=== PATIENT | male | born 1980 | race Caucasian/White ===

== ENCOUNTER 2019-02-27 19:13 | Observation (INO) ==
[2019-02-27] MEDS ORDERED: 0.9 % Sodium Chloride 1,000 ML IVC ONE ×2 (20:16→22:50)
[2019-02-27] MEDS ORDERED: *HR* LORazepam 2 MG/ML VIAL IVP ONE (20:16)
--- NOTE | 2019-02-27 20:20 | Emergency Department Note ---
Disposition Clinical Impression: Dehydration, Anxiety, Alcohol abuse, Diabetes, Marijuana abuse, Abnormal urinalysis, Fibromyalgia, Hypotension, On statin therapy Disposition: Admitted As Inpatient Condition: Fair Referrals: NONE,PCP [Primary Care Provider] - [facility] [Outside] Forms: ED Satisfaction Letter Time of Disposition: 00:24 General Adult HPI - General Chief complaint: ED Dizziness Stated complaint: Trouble standing/Lightheaded Time Seen by Provider: 02/27/19 20:07 Source: patient Limitations: no limitations - History of Present Illness HPI Narrative: 38-year-old male reports emergency department complaining that he has not eaten much food over the last few days and that he feels generally weak. When he sits up he feels woozy and lightheaded. He is known to be diabetic. The patient also describes significant anxiety and depression without suicidality or homicidality. He is known to drink alcohol on a regular basis. The patient does not describe convulsions or confusion, no tremulousness or concerns for DT. His last drink of alcohol was about noon. The patient denies chest pain or shortness of breath. No abdominal pain. No vomiting or diarrhea. No headache neck stiffness rash or fever. The patient describes chronic lower extremity diabetic neuropathy secondary to type 2 diabetes. There is no history of skin rash. The patient reports she has had "a bad week". He feels that he has not eaten and drank enough. There is no history of bleeding of any sort. No slurred speech or facial drooping or unilateral arm or leg weakness or numbness. Pain Scale: 4 - Related Data Home Medications Medication Instructions Recorded Confirmed Atorvastatin [Lipitor] 20 mg PO HS 02/27/19 02/27/19 Buspirone HCl [Buspar] 10 mg PO HS 02/27/19 02/27/19 Gabapentin [Neurontin] 600 mg PO HS 02/27/19 02/27/19 Nadolol 20 mg PO HS 02/27/19 02/27/19 Sertraline [Zoloft] 50 mg PO HS 02/27/19 02/27/19 Allergies Allergy/AdvReac Type Severity Reaction Status Date / Time No Known Allergies Allergy Verified 02/27/19 19:55 All systems ED: reviewed and negative except as stated. Past Medical History - Past Medical History Medical history: Reports: diabetes, fibromyalgia - Social History Smoking Status: Never smoker Alcohol use: Reports: heavy Drug use: Reports: none Physical Exam - General Limitations: no limitations General appearance: alert, anxious - Head Head exam: atraumatic, normocephalic, normal inspection - Eye Eye exam: Present: normal appearance, PERRL, EOMI. Absent: nystagmus - ENT ENT exam: normal exam, normal oropharynx, mucous membranes moist, TM's normal bilaterally, normal external ear exam - Neck Neck exam: Present: normal inspection, full ROM, trachea midline - Chest Chest inspection: Present: normal inspection, symmetric chest wall rise. Absent: tenderness - Respiratory Respiratory exam: Present: normal lung sounds bilaterally. Absent: respiratory distress, prolonged expiratory phase - Cardiovascular Cardiovascular exam: Present: regular rate, normal rhythm, normal heart sounds - Abdominal Exam Abdominal exam: Present: soft, Non-Tender, normal bowel sounds. Absent: tenderness, distention, guarding, rebound, rigidity - Extremities Exam Extremities exam: Present: normal inspection, full ROM. Absent: tenderness, normal capillary refill, pedal edema, joint swelling, calf tenderness - Expanded Lower Extremity Exam Neurovascular/Tendon exam: Present: normal capillary refill. Absent: pulse deficit, motor deficit, sensory deficit, tendon deficit, extremity cold to touch, pallor - Back Exam Back exam: Present: normal inspection, full ROM. Absent: tenderness, CVA tenderness (R), CVA tenderness (L), vertebral tenderness - Neurological Exam Neurological exam: Present: alert, oriented X3, CN II-XII intact. Absent: motor sensory deficit - Psychiatric Psychiatric exam: Present: normal affect, normal mood - Skin Skin exam: Present: warm, dry, intact, normal color Course Vital Signs Temperature 98.0 F 02/27/19 19:49 Pulse Rate 102 02/27/19 19:49 Respiratory Rate 20 02/27/19 19:49 Blood Pressure 134/94 02/27/19 19:49 O2 Sat by Pulse Oximetry 97 02/27/19 19:49 Temperature 98.0 F 02/27/19 19:49 Pulse Rate 100 02/28/19 00:35 Respiratory Rate 19 02/27/19 22:46 Blood Pressure 155/97 02/28/19 00:35 O2 Sat by Pulse Oximetry 93 02/27/19 22:46 Oxygen Delivery Oxygen Delivery Room Air Medical Decision Making - MDM Narrative Medical decision making narrative: The patient reports emergency department complaining he feels dizzy when he stands up. He states he has not taken much food or fluid over last few days. He is known to be a chronic alcohol user. He has not consumed alcohol since this morning. The patient does not describe symptoms suggestive of DT. He denies chest pain shortness breath abdominal pain or fall no seizure like activity no headache neck stiffness rash convulsion or confusion. He is known to be diabetic. The patient describes significant anxiety and depression. He has not been homicidal or suicidal. Laboratory studies were obtained and reviewed, there appears to be an element of dehydration. The patient was given Ativan in the emergency department for anxiety prevent withdrawal symptomatology. Two liters of normal saline were given and the patient remained orthostatic. Based on the patient's apparent dehydration with persistent orthostasis, and comorbidities including anxiety depression, alcohol abuse and diabetes, I thought it would be appropriate to admit the patient to the hospital. I discussed the case with the hospitalist on-call who has accepted the patient to their care pending results of ABG and beta hydroxybutyrate. Dr. Yadav is aware and will intervene if pending test results are abnormal. - Lab Data Lab results reviewed: Yes I reviewed the patient's lab results. Result diagrams: 02/27/19 20:30 02/27/19 20:30 Lab Results 02/27/19 02/27/19 02/27/19 Range/Units 20:15 20:30 20:30 WBC 9.7 (4.3-11.1) K/mcL RBC 6.34 H (4.19-5.50) M/mcL Hgb 18.1 H (12.9-16.9) g/dL Hct 51.2 H (37.5-50.1) % MCV 80.8 L (83.0-100.0) fL MCH 28.5 (28.0-33.3) pg MCHC 35.4 (31.6-35.5) g/dL RDW 11.9 (11.5-14.5) % Plt Count 245 (140-400) K/mcL MPV 10.9 (9.4-12.4) fL Immature Gran % 0.6 (0-4) % Seg Neutrophils % 61.1 % Lymphocytes % 27.5 % Monocytes % 9.4 % Eosinophils % 0.6 % Basophils % 0.8 % Neutrophils # 5.9 (1.6-8.9) K/mcL Lymphocytes # 2.7 (0.6-4.6) K/mcL Monocytes # 0.9 (0.0-1.3) K/mcL Eosinophils # 0.1 (0.0-0.6) K/mcL Basophils # 0.1 (0.0-0.2) K/mcL Sodium 132 L (136-145) mEq/L Potassium 3.6 (3.5-5.1) mEq/L Chloride 90 L (98-107) mEq/L Carbon Dioxide 26 (23-29) mEq/L BUN 6 (6-20) mg/dL Creatinine 0.69 L (0.70-1.30) mg/dL Est GFR ( Amer) > 60 (> 60) Est GFR (Non-Af Amer) > 60 (> 60) BUN/Creatinine Ratio 9 (6-26) Glucose 272 H (70-105) mg/dL POC Glucose 254 H (70-99) mg/dL Calculated Osmolality 281 (280-300) Calcium 9.3 (8.6-10.3) mg/dL Total Bilirubin 1.2 H (0.3-1.0) mg/dL AST 24 (13-39) Units/L ALT 23 (7-52) Units/L Alkaline Phosphatase 141 H (34-104) Units/L Creatine Kinase 31 (30-223) Units/L Troponin I < 0.03 (< 0.04) ng/mL Serum Total Protein 7.2 (6.4-8.9) g/dL Albumin 4.0 (3.5-5.7) g/dL Globulin 3.2 (2.4-3.5) g/dL Albumin/Globulin Ratio 1.3 (1.1-2.2) Urine Color (Yellow) Urine Clarity (Clear) Urine pH (5.0-8.0) pH Units Ur Specific [place] (1.010-1.025) Urine Protein (Neg-Trace) mg/dL Urine Glucose (UA) (Normal) mg/dL Urine Ketones (Negative) mg/dL Urine Blood (Negative) Urine Nitrite (Negative) Urine Bilirubin (Negative) Urine Urobilinogen (Normal) mg/dL Ur Leukocyte Esterase (Negative) Urine Microscopic RBC (0-3) per hpf Urine Microscopic WBC (0-3) per hpf Ur Squamous Epith Cells (None-Few) per lpf Urine Bacteria (None-Few) per hpf Hyaline Casts (None-Few) per lpf Ur Culture Indicated? (NO) Salicylates < 2.5 L (15.0-30.0) mg/dL Urine Opiates Screen (Idaoid=626) ng/mL Ur Buprenorphine Scrn (Cutoff=5) ng/mL Acetaminophen < 10 L (10-20) mcg/mL Ur Barbiturates Screen (Qskvqu=239) ng/mL Ur Phencyclidine Scrn (Cutoff=25) ng/mL Ur Amphetamines Screen (Fyeudm=3692) ng/mL U Benzodiazepines Scrn (Lgoaji=590) ng/mL Urine Cocaine Screen (Cutoff= 300) ng/mL U Marijuana (THC) Screen (Cutoff = 50) ng/mL Ur Drug Screen Interp Ethyl Alcohol < 10 (Less than 10) mg/dL 02/27/19 02/27/19 Range/Units 22:11 22:11 WBC (4.3-11.1) K/mcL RBC (4.19-5.50) M/mcL Hgb (12.9-16.9) g/dL Hct (37.5-50.1) % MCV (83.0-100.0) fL MCH (28.0-33.3) pg MCHC (31.6-35.5) g/dL RDW (11.5-14.5) % Plt Count (140-400) K/mcL MPV (9.4-12.4) fL Immature Gran % (0-4) % Seg Neutrophils % % Lymphocytes % % Monocytes % % Eosinophils % % Basophils % % Neutrophils # (1.6-8.9) K/mcL Lymphocytes # (0.6-4.6) K/mcL Monocytes # (0.0-1.3) K/mcL Eosinophils # (0.0-0.6) K/mcL Basophils # (0.0-0.2) K/mcL Sodium (136-145) mEq/L Potassium (3.5-5.1) mEq/L Chloride (98-107) mEq/L Carbon Dioxide (23-29) mEq/L BUN (6-20) mg/dL Creatinine (0.70-1.30) mg/dL Est GFR ( Amer) (> 60) Est GFR (Non-Af Amer) (> 60) BUN/Creatinine Ratio (6-26) Glucose (70-105) mg/dL POC Glucose (70-99) mg/dL Calculated Osmolality (280-300) Calcium (8.6-10.3) mg/dL Total Bilirubin (0.3-1.0) mg/dL AST (13-39) Units/L ALT (7-52) Units/L Alkaline Phosphatase (34-104) Units/L Creatine Kinase (30-223) Units/L Troponin I (< 0.04) ng/mL Serum Total Protein (6.4-8.9) g/dL Albumin (3.5-5.7) g/dL Globulin (2.4-3.5) g/dL Albumin/Globulin Ratio (1.1-2.2) Urine Color Yellow (Yellow) Urine Clarity Clear (Clear) Urine pH 6.5 (5.0-8.0) pH Units Ur Specific [place] 1.021 (1.010-1.025) Urine Protein Trace (Neg-Trace) mg/dL Urine Glucose (UA) >=1000 H (Normal) mg/dL Urine Ketones 15 H (Negative) mg/dL Urine Blood Negative (Negative) Urine Nitrite Negative (Negative) Urine Bilirubin Small H (Negative) Urine Urobilinogen 4.0 H (Normal) mg/dL Ur Leukocyte Esterase Small H (Negative) Urine Microscopic RBC 3-5 H (0-3) per hpf Urine Microscopic WBC 3-5 H (0-3) per hpf Ur Squamous Epith Cells Many H (None-Few) per lpf Urine Bacteria None Seen (None-Few) per hpf Hyaline Casts None Seen (None-Few) per lpf Ur Culture Indicated? YES A (NO) Salicylates (15.0-30.0) mg/dL Urine Opiates Screen Negative (Ybcacw=253) ng/mL Ur Buprenorphine Scrn Negative (Cutoff=5) ng/mL Acetaminophen (10-20) mcg/mL Ur Barbiturates Screen Negative (Ldlspc=045) ng/mL Ur Phencyclidine Scrn Negative (Cutoff=25) ng/mL Ur Amphetamines Screen Negative (Izebee=0218) ng/mL U Benzodiazepines Scrn Negative (Lelqky=572) ng/mL Urine Cocaine Screen Negative (Cutoff= 300) ng/mL U Marijuana (THC) Screen Positive H (Cutoff = 50) ng/mL Ur Drug Screen Interp See Below Ethyl Alcohol (Less than 10) mg/dL - Radiology Data Radiology results reviewed: Yes I reviewed the patient's radiology results.
[2019-02-27 20:44] LABS: Basophils # 0.1 K/mcL (0.0-0.2); Basophils % 0.8 %; Eosinophils # 0.1 K/mcL (0.0-0.6); Eosinophils % 0.6 %; Hematocrit 51.2 % (37.5-50.1); Hemoglobin 18.1 g/dL (12.9-16.9); Immature Granulocytes % 0.6 % (0-4); Lymphocytes # 2.7 K/mcL (0.6-4.6); Lymphocytes % 27.5 %; Mean Corpuscular HGB Conc 35.4 g/dL (31.6-35.5); Mean Corpuscular Hemoglobin 28.5 pg (28.0-33.3); Mean Corpuscular Volume 80.8 fL (83.0-100.0); Mean Platelet Volume 10.9 fL (9.4-12.4); Monocytes # 0.9 K/mcL (0.0-1.3); Monocytes % 9.4 %; Neutrophils # 5.9 K/mcL (1.6-8.9); Platelet Count 245 K/mcL (140-400); Red Blood Count 6.34 M/mcL (4.19-5.50); Red Cell Distribution Width 11.9 % (11.5-14.5); Segmented Neutrophils % 61.1 %; White Blood Count 9.7 K/mcL (4.3-11.1)
[2019-02-27 21:13] LABS: Acetaminophen < 10 mcg/mL (10-20); Alanine Aminotransferase 23 Units/L (7-52); Albumin/Globulin Ratio 1.3 (1.1-2.2); Alkaline Phosphatase 141 Units/L (34-104); Aspartate Amino Transferase 24 Units/L (13-39); BUN/Creatinine Ratio 9 (6-26); Bilirubin,Total 1.2 mg/dL (0.3-1.0); Blood Urea Nitrogen 6 mg/dL (6-20); Calcium 9.3 mg/dL (8.6-10.3); Carbon Dioxide 26 mEq/L (23-29); Chloride 90 mEq/L (98-107); Ethanol < 10 mg/dL (Less than 10); Globulin 3.2 g/dL (2.4-3.5); Glucose 272 mg/dL (70-105); Osmolality,Calculated 281 (280-300); Potassium 3.6 mEq/L (3.5-5.1); Salicylate < 2.5 mg/dL (15.0-30.0); Sodium 132 mEq/L (136-145); Total Protein 7.2 g/dL (6.4-8.9); Troponin I < 0.03 ng/mL (< 0.04); eGFR For African Americans > 60 (> 60); eGFR For Non-African Americans > 60 (> 60)
[2019-02-27 22:18] LABS: Bilirubin,Urine Small (Negative); Blood,Urine Negative (Negative); Clarity,Urine Clear (Clear); Color,Urine Yellow (Yellow); Glucose,Urine (UA) >=1000 mg/dL (Normal); Ketones,Urine 15 mg/dL (Negative); Leukocyte Esterase,Urine Small (Negative); Nitrite,Urine Negative (Negative); PH,Urine 6.5 pH Units (5.0-8.0); Protein,Urine Trace mg/dL (Neg-Trace); Specific Gravity,Urine 1.021 (1.010-1.025)
[2019-02-27 22:20] LABS: Bacteria,Urine None Seen per hpf (None-Few); Hyaline Casts,Urine None Seen per lpf (None-Few); Squamous Epithelial Cell,Urine Many per lpf (None-Few)
[2019-02-27 22:33] LABS: Amphetamine Screen,Urine Negative ng/mL (Cutoff=1000); Barbiturate Screen,Urine Negative ng/mL (Cutoff=200); Benzodiazepines Screen,Urine Negative ng/mL (Cutoff=200); Cannabinoid Screen,Urine Positive ng/mL (Cutoff = 50); Cocaine Screen,Urine Negative ng/mL (Cutoff= 300); Opiate Screen,Urine Negative ng/mL (Cutoff=300); Phencyclidine Screen,Urine Negative ng/mL (Cutoff=25)
[2019-02-28 00:01] LABS: Creatine Kinase 31 Units/L (30-223)
[2019-02-28] MEDS ORDERED: *HR* LORazepam 1 MG TABLET PO ONE ×2 (00:23→00:24)
[2019-02-28 04:09] LABS: VBG HCO3 28 mEq/L (21-27); VBG PCO2 40 mmHg (41-51); VBG PH 7.45 pH Units (7.32-7.42); VBG PO2 68 mmHg (25-50)
--- NOTE | 2019-02-28 04:59 | Emergency Department Note ---
START Narrative - START START: Dr. Viera notified of pending lab results and accepted admission of the patient. He requested a repeat Accu-Chek and repeat basic metabolic panel. Dr. Viera accepted admission of the patient. Repeat Accu-Chek was 185.
[2019-02-28] MEDS ORDERED: 0.9 % Sodium Chloride 1,000 ML ONE (05:09)
[2019-02-28 05:31] LABS: BUN/Creatinine Ratio 9 (6-26); Blood Urea Nitrogen 6 mg/dL (6-20); Calcium 8.8 mg/dL (8.6-10.3); Carbon Dioxide 25 mEq/L (23-29); Chloride 96 mEq/L (98-107); Glucose 172 mg/dL (70-105); Osmolality,Calculated 278 (280-300); Potassium 3.5 mEq/L (3.5-5.1); Sodium 133 mEq/L (136-145); eGFR For African Americans > 60 (> 60); eGFR For Non-African Americans > 60 (> 60)
[2019-02-28] MEDS ORDERED: *HR* LORazepam 2 MG/ML VIAL IVP PRN ×2 (06:36)
[2019-02-28] MEDS: *HR* LORazepam 2 MG/ML VIAL IVP PRN ×2 (07:11→20:28)
[2019-02-28] MEDS: 0.9 % Sodium Chloride 1,000 ML IVC SCH ×2 (07:12→18:59)
[2019-02-28] MEDS ORDERED: Dextrose Gel 15 GM/37.5 ML TUBE PO PRN ×2 (07:43)
[2019-02-28] MEDS ORDERED: *HR* Dextrose 50 % in Water (Syg) 50 ML SYRINGE IVP PRN (07:43)
[2019-02-28] MEDS ORDERED: D5% in Water 1,000 ML IVC PRN (07:43)
[2019-02-28] MEDS ORDERED: Acetaminophen 325 MG TABLET PO PRN (07:44)
[2019-02-28] MEDS ORDERED: Ondansetron 4 MG/2 ML VIAL IVP PRN (07:44)
[2019-02-28] MEDS ORDERED: Naloxone 0.4 MG/ML INJ IVP PRN (07:44)
[2019-02-28] MEDS ORDERED: Ibuprofen 400 MG TABLET PO PRN (07:44)
[2019-02-28 08:09] LABS: Hematocrit 45.2 % (37.5-50.1); Mean Corpuscular HGB Conc 34.3 g/dL (31.6-35.5); Mean Corpuscular Hemoglobin 28.3 pg (28.0-33.3); Mean Corpuscular Volume 82.5 fL (83.0-100.0); Mean Platelet Volume 10.9 fL (9.4-12.4); Platelet Count 168 K/mcL (140-400); Red Blood Count 5.48 M/mcL (4.19-5.50); Red Cell Distribution Width 11.9 % (11.5-14.5); White Blood Count 8.6 K/mcL (4.3-11.1)
[2019-02-28 08:16] LABS: Hemoglobin 15.5 g/dL (12.9-16.9)
[2019-02-28 08:17] LABS: INR 1.2; Prothrombin Time 13.4 Seconds (9.4-12.1)
--- NOTE | 2019-02-28 08:19 | Internal Med History&Physical ---
Date of Encounter: 02/28/19 Time of Encounter: 07:52 Internal Medicine - H&P: HPI Chief complaint: Dizziness Admitted From: Emergency Dept History of present illness: Sheldon Gorman is a 38 M w hx EtOH use disorder c/b neuropathy, DM2, dep/anx, obesity, who p/w dizziness upon standing. Says this has been happening frequently in the last 2 days, but that he's been having lightheadedness when standing intermittently for several weeks. Did fall in his bathtub 3 weeks ago (denies head trauma), and prior to that had to sit down in his hallway en route to bathroom. Says that for the last ~6 months, he's noticed significant weight loss unintentionally of about 40-50 lbs, going from ~260 to ~210. States multiple started commenting about his weight loss to the point where he's felt embarassed and actually stopped leaving his house because of it, and started drinking more. Unsure why he's losing weight but does report difficulty swallowing solid food, saying he attempts to swallow but feels like he often regurgitates it. Does drink EtOH daily which he says helps with his painful peripheral neuropathy, which he acknowledges is probably from his drinking. Last hospitalized at [place] he says 2 months ago for similar reasons. Denies H A/F/C/N/V/D. In the ED, pt vitals show T 98, HR 102, RR 20, SBP 130-150s which dropped to 110 on standing. Labs notable for Hb 18, Na 132, Cl 90, BG 272, Tbili 1.2, ketones 0.4, Lactate 2.4, VBG pH 7.45. Given NS 3L and admitted. PMH: as above PSH: none SH: daily EtOH, nonsmoker FH: no hx cirrhosis, no hx esophageal cancer or other pathology Allergies: none Past Med Surg Social Fam HX - Past Medical History Medical history: diabetes, fibromyalgia, other Additional medical history: neuropathy, Alcohol Abuse Psychiatric history: anxiety, depression - Social History Smoking Status: Never smoker Alcohol use: heavy Drug use: none Internal Medicine - H&P: Meds Atorvastatin [Lipitor] 20 mg PO HS 02/27/19 [History] Buspirone HCl [Buspar] 10 mg PO HS 02/27/19 [History] Gabapentin [Neurontin] 600 mg PO HS 02/27/19 [History] Nadolol 20 mg PO HS 02/27/19 [History] Sertraline [Zoloft] 50 mg PO HS 02/27/19 [History] Allergy/AdvReac Type Severity Reaction Status Date / Time No Known Allergies Allergy Verified 02/27/19 19:55 All Systems PM: A 10-system review of systems was performed and is negative for pertinent findings except as documented above in the HPI. - Constitutional Vitals: Temp Pulse Resp BP Pulse Ox 98.0 F 100 18 132/96 93 02/27/19 19:49 02/28/19 00:35 02/28/19 05:46 02/28/19 05:46 02/27/19 22:46 Exam: General: NAD, initially disoriented upon awakening but subsequently AAOx3, good eye contact, disheveled/unkempt w long mendez, diffuse tattoos including face Head: Atraumatic, normocephalic. Face symmetric Eyes: EOMI, sclerae anicteric ENT: Mucous membranes moist. Normal oral mucosa and poor dentition. Trachea midline. No cervical lymphadenopathy Thoracic: No visible chest wall deformities. Normal breath sounds b/l, no wheezing or crackles Cardio: Normal S1 and S2, regular rhythm, tachycardic, no murmurs Abdomen: Soft, nontender, nondistended. Bowel sounds present. No rebound. Unable to detect any hepatosplenomegaly Extremities: Warm, well perfused. DP pulses 2+ b/l. No clubbing, cyanosis. No edema Skin: Intact. No rashes, bruises, or ulcers. Tattoos widespread Neuro: Awake, fully oriented. Moderate memory, decent concentration and attention. Speech fluent. CN II-XII grossly intact. Strength 5/5 in b/l UE and LE. No tremor. Internal Med - H&P Results - Labs CBC & Chem 7: 02/28/19 07:56 02/28/19 07:56 Labs: Short CBC 02/27/19 Range/Units 20:30 WBC 9.7 (4.3-11.1) K/mcL Hgb 18.1 H (12.9-16.9) g/dL Hct 51.2 H (37.5-50.1) % Plt Count 245 (140-400) K/mcL Neutrophils # 5.9 (1.6-8.9) K/mcL BMP 02/27/19 02/28/19 20:30 03:47 Sodium 132 L 133 L Potassium 3.6 3.5 Chloride 90 L 96 L Carbon Dioxide 26 25 BUN 6 6 Creatinine 0.69 L 0.66 L Glucose 272 H 172 H Calcium 9.3 8.8 Cardiac Enzymes 02/27/19 Range/Units 20:30 Troponin I < 0.03 (< 0.04) ng/mL Liver Function 02/27/19 Range/Units 20:30 Total Bilirubin 1.2 H (0.3-1.0) mg/dL AST 24 (13-39) Units/L ALT 23 (7-52) Units/L Alkaline Phosphatase 141 H (34-104) Units/L Albumin 4.0 (3.5-5.7) g/dL Urine 02/27/19 Range/Units 22:11 Urine Color Yellow (Yellow) Urine Clarity Clear (Clear) Urine pH 6.5 (5.0-8.0) pH Units Ur Specific [place] 1.021 (1.010-1.025) Urine Protein Trace (Neg-Trace) mg/dL Urine Glucose (UA) >=1000 H (Normal) mg/dL - ABG Interpretation ABG results: 02/28/19 04:03 VBG pH 7.45 H VBG pCO2 40 L VBG pO2 68 H VBG HCO3 28 H - Impressions ITS Impressions Chest X-Ray 02/27/19 20:16 IMPRESSION: No acute cardiopulmonary process D/ / Song Rivas / Song Rivas Interpreting Provider: Song Rivas - Summary of Assessment and Plan Summary of Assessment and Plan: Sheldon Gorman is a 38 M w hx EtOH use disorder, DM2, dep/anx, obesity, who p/w dizziness upon standing in context of EtOH use and poor PO, found to have hyperglycemia, hyponatremia, urine ketones, elevated lactic acid, and postural drop in BP, concerning for dehydration causing orthostatic hypotension and st arvation ketosis. Orthostatic hypotension: likely 2/2 dehydration - recheck ortho VS now that pt s/p NS 3L boluses Elevated lactic acid: VBG pH is wnl - recheck now since having rec'd fluids Dehydration: c/b hypovolemic hyponatremia and hypochloremia, 2/2 EtOH use and hyperglycemia, given NS 3L in ED with improvement - recheck bmp and add mg, phos Starvation ketosis: 2/2 poor PO intake 2/2 EtOH use but also reports ~50 lb wt loss in 2019 w difficulty swallowing solids which could indicate underlying structural pathology - speech consult for swallow eval - EGD EtOH use disorder: high risk for wdwl, does have mild elevated Tbili - CIWA protocol & precautions - check MELD labs - RUQ DM2: hyperglycemic on presentation - check A1c - SSI Microcytic erythrocytosis: nonsmoker, no T use - recheck Hb/Hct - peripheral smear Obesity: BMI 30 PPx: lovenox Tele: no Activity: ambulate w assist FEN: ADA, no MIVF Lines: PIV Consults: Code: Full Dispo: obs for high risk pt w complicated dehdyration, anticipate 1-2 days, will be homegoing
[2019-02-28 08:30] LABS: Alanine Aminotransferase 16 Units/L (7-52); Albumin 3.3 g/dL (3.5-5.7); Albumin/Globulin Ratio 1.3 (1.1-2.2); Alkaline Phosphatase 111 Units/L (34-104); Aspartate Amino Transferase 16 Units/L (13-39); BUN/Creatinine Ratio 9 (6-26); Bilirubin,Direct 0.3 mg/dL (0.0-0.2); Bilirubin,Indirect 1.3 mg/dL (0.0-1.2); Bilirubin,Total 1.6 mg/dL (0.3-1.0); Blood Urea Nitrogen 6 mg/dL (6-20); Calcium 8.5 mg/dL (8.6-10.3); Carbon Dioxide 29 mEq/L (23-29); Chloride 96 mEq/L (98-107); Globulin 2.6 g/dL (2.4-3.5); Glucose 205 mg/dL (70-105); Magnesium 1.6 mg/dL (1.6-2.6); Osmolality,Calculated 284 (280-300); Phosphorous 4.2 mg/dL (2.7-4.5); Potassium 3.4 mEq/L (3.5-5.1); Sodium 135 mEq/L (136-145); Total Protein 5.9 g/dL (6.4-8.9); eGFR For African Americans > 60 (> 60); eGFR For Non-African Americans > 60 (> 60)
[2019-02-28 08:57] LABS: Lactate Dehydrogenase 128 Units/L (140-271)
[2019-02-28 09:00] LABS: Basophils # 0.1 K/mcL (0.0-0.2); Basophils % 0.7 %; Eosinophils # 0.1 K/mcL (0.0-0.6); Eosinophils % 0.6 %; Immature Granulocytes % 0.6 % (0-4); Lymphocytes # 2.8 K/mcL (0.6-4.6); Lymphocytes % 31.4 %; Monocytes # 0.9 K/mcL (0.0-1.3); Monocytes % 10.6 %; Neutrophils # 4.9 K/mcL (1.6-8.9); Segmented Neutrophils % 56.1 %
[2019-02-28] MEDS: Insulin LISPRO 300 UNITS/3 ML VIAL SQ SCH ×4 (09:57→20:46)
[2019-02-28 11:02] LABS: Estimated Average Glucose 209 mg/dl
--- NOTE | 2019-02-28 12:13 | Gastroenterology Consult Note ---
<JonesUgo portillo Diego - Last Filed: 02/28/19 12:11> Date of Encounter: 02/28/19 Time of Encounter: 11:45 - Assessment and plan (1) Dysphagia Status: Acute Assessment and plan: Patient with difficulty swallowing solids and liquids. EGD with possible dilation to r/o structural causes such as stricture, tumor, etc vs esophageal motility disorder. Keep patient NPO at midnight. Qualifiers: Dysphagia type: unspecified Qualified Code(s): R13.10 - Dysphagia, unspecified (2) Unintentional weight loss Status: Acute Assessment and plan: Patient reports weight loss of 30 lbs over the past 6 months. Likely secondary to alcohol abuse. Plan for EGD tomorrow. Keep NPO at midnight. (3) Alcohol abuse Status: Acute Assessment and plan: Liver ultrasound unremarkable. TB 1.6, indirect bili 1.3, AST 16, ALT 16, alkaline phosphatase 111. Encouraged patient to abstain from all forms of alcohol. - Time Spent With Patient Total time spent is greater than 50% in coordination of care (as documented) at patient's floor/unit and/or counseling patient: GI History of Present Illness - Data of Consult Patient: new to practice Consult date: 02/28/19 Requesting Physician: Mirza Gonzalez - Consult Narrative Reason for consult: Wt loss, dysphagia History of present illness: Mr. Gorman is a 38 year old male with PMHx of DM, fibromyalgia, alcohol abuse who presented with complaints of not eating much food over the last few days, dizziness with standing, and weakness. He states he has lost approximately 30 pounds in the past 6 months. He also complains of dysphagia with solids and liquids that has been ongoing for the past two months. He has history of alcohol abuse and states he was drinking at leat a bottle of vodka daily. He was then dry for approximately 2 months. He states he restarted drinking one bottle of vodka daily last week. He denies fever, chills, chest pain, shortness of breath, abdominal pain, nausea, vomiting, diarrhea, melena, or hematochezia. Procedures: None NSAIDs: None Anticoagulation: None Past Med Surg Social Fam HX - Past Medical History Medical history: diabetes, fibromyalgia, other Additional medical history: neuropathy, Alcohol Abuse Psychiatric history: anxiety, depression - Social History Smoking Status: Never smoker Alcohol use: heavy Drug use: none - Gastrointestinal Gastrointestinal: Present: as per HPI - Constitutional Constitutional: as per HPI - EENT Eyes: as per HPI Ears: Present: as per HPI Nose, mouth and throat: Present: as per HPI - Cardiovascular Cardiovascular ROS: Present: as per HPI - Respiratory Respiratory IM: Present: as per HPI - Genitourinary Genitourinary: Absent: change in color, Urinary frequency - Neurological ROS Neurological GI: Present: as per HPI - Hematologic/Lymphatic Hematologic/Lymphatic pediatric: Present: as per HPI - Musculoskeletal Musculoskeletal ROS GI: Present: as per HPI - Integumentary Integumentary GI: Present: as per HPI - Psychiatric ROS Psychiatric GI: Present: as per HPI - Endocrine Endocrine IM: Present: as per HPI - Constitutional Vitals: Temp Pulse Resp BP Pulse Ox 97.7 F 97 16 158/88 96 02/28/19 11:48 02/28/19 11:48 02/28/19 11:48 02/28/19 11:48 02/28/19 11:48 General appearance: Present: cooperative, A&O X 3, no acute distress, answers questions appropriately - Head Head exam: Present: atraumatic, normocephalic - Eye Eye exam: Present: normal appearance, sclera anicteric - ENT ENT exam: Present: mucous membranes moist - Neck Neck exam general surgery: Present: normal inspection, trachea midline - Respiratory Respiratory exam: Present: CTAB. Absent: rales, rhonchi - Cardiovascular Cardiovascular exam: Present: RRR, +S1, +S2 - GI/Abdominal GI/Abdominal exam: Present: soft, no peritoneal signs. Absent: distended, firm, guarding, tenderness - Rectal Rectal exam: Present: deferred - Extremities Exam Extremities exam: Present: warm - Neurological Exam Neurological exam: Present: no focal deficits - Psychiatric Psychiatric exam: Present: normal affect, normal mood - Skin Skin exam: Present: dry, intact, normal color, warm Additional comments: Multiple tattoos Results - Labs CBC & Chem 7: 02/28/19 07:56 02/28/19 07:56 Labs: Last Result 02/28/19 02/28/19 03:47 07:56 Calcium 8.8 8.5 L Entire Visit 02/28/19 02/28/19 02/28/19 07:56 07:56 07:56 Hgb 15.5 D Hct 45.2 PT 13.4 H Total Bilirubin 1.6 H AST 16 ALT 16 - ABG ABG results: PT/INR, D-dimer PT 13.4 Seconds (9.4-12.1) H 02/28/19 07:56 - Impressions Impressions Chest X-Ray 02/27/19 20:16 IMPRESSION: No acute cardiopulmonary process D/ / Song Rivas / Song Rivas Interpreting Provider: Song Rivas Liver Ultrasound 02/28/19 10:00 IMPRESSION: Unremarkable right upper quadrant ultrasound. D/ / Edson Boyer MD / Edson Boyer MD Interpreting Provider: Edson Boyer MD Consult Discharge Plan - Plan Instructions: Lisinopril (By mouth), Omeprazole (By mouth), Sertraline (By mouth), Vancomycin (By mouth), Anxiety (DC) Additional Instructions: Change positions slowly Stay hydrated Monitor blood pressure and keep a log Follow-up with residency clinic Follow-up with mental health AA meetings Referrals: [facility] [Outside] (Please call to schedule hospital follow up.) [facility] [Outside] (Please call to schedule follow up appointment) Prescriptions: Vancomycin Oral Soln [Firvanq] 125 mg PO QID 10 Days #40 udc Omeprazole [PriLOSEC] 20 mg PO DAILY #30 cap Lisinopril [Zestril] 5 mg PO DAILY 30 Days #30 tablet Sertraline [Zoloft] 200 mg PO DAILY 30 Days #60 tablet <Brennan Rivera - Last Filed: 03/06/19 05:49> Date of Encounter: 02/28/19 - Time Spent With Patient Total time spent is greater than 50% in coordination of care (as documented) at patient's floor/unit and/or counseling patient: GI History of Present Illness - Data of Consult Requesting Physician: Mirza Gonzalez - Consult Narrative History of present illness: Mr. Gorman is a 38 year old male - Constitutional Vitals: Temp Pulse Resp BP Pulse Ox 98.1 F 90 16 141/99 98 03/03/19 12:11 03/03/19 12:11 03/03/19 12:11 03/03/19 12:11 03/03/19 12:11 Results - Labs CBC & Chem 7: 03/03/19 09:08 03/03/19 09:08 - ABG ABG results: PT/INR, D-dimer PT 11.5 Seconds (9.4-12.1) 03/02/19 05:28 - Attending Attestation Mr. Gorman is a 38 year old male with PMHx of DM, fibromyalgia, alcohol abuse who presented with complaints of not eating much food over the last few days, dizziness with standing, and weakness. He also reports a 30 pound weight loss. I examined this patient and my medical decision-making was reviewed with the Resident Physician. I agree with the documented findings, disposition and treatment plan as described except to the extent set forth below.
[2019-02-28] MEDS: Thiamine (B-1) 100 MG, Folic Acid 1 MG, MVI, adult with vitamin K 10 ML in 0.9 % Sodi... IVPB SCH (19:00)
[2019-02-28] MEDS: Gabapentin 300 MG CAPSULE PO SCH (20:28)
[2019-03-01] MEDS: *HR* LORazepam 2 MG/ML VIAL IVP PRN ×2 (05:18→20:57)
[2019-03-01] MEDS: 0.9 % Sodium Chloride 1,000 ML IVC SCH ×3 (05:31→14:07)
[2019-03-01] MEDS ORDERED: *HR* Enoxaparin 40 MG/0.4 ML SYRINGE SQ SCH (06:00)
[2019-03-01] MEDS: Insulin LISPRO 300 UNITS/3 ML VIAL SQ SCH ×4 (08:30→20:37)
--- NOTE | 2019-03-01 11:01 | Internal Med Progress Note ---
Hospitalist Progress Note - Encounter Date of Encounter: 03/01/19 Time of Encounter: 11:01 - Subjective Interval History: Patient was seen and examined at bedside patient appears to be distraught and at times almost tearful states that he has been under a lot of stress lately and that he has been arguing with his and that is what prompted him to start drinking. Also expresses difficulty in swallowing he denies any suicidal ideations but he repeatedly states "I do not know what to do "patient will undergo EGD today we will also consult psychiatry patient verbalizes understanding - Exam Vitals: Temp Pulse Resp BP Pulse Ox 98.5 F 95 16 151/113 97 03/01/19 07:24 03/01/19 07:24 03/01/19 07:24 03/01/19 07:24 03/01/19 07:24 Exam: General: NAD, initially disoriented upon awakening but subsequently AAOx3, good eye contact, disheveled/unkempt w long mendez, diffuse tattoos including face Head: Atraumatic, normocephalic. Face symmetric Eyes: EOMI, sclerae anicteric ENT: Mucous membranes moist. Normal oral mucosa and poor dentition. Trachea midline. No cervical lymphadenopathy Thoracic: No visible chest wall deformities. Normal breath sounds b/l, no wheezing or crackles Cardio: Normal S1 and S2, regular rhythm, tachycardic, no murmurs Abdomen: Soft, nontender, nondistended. Bowel sounds present. No rebound. Unable to detect any hepatosplenomegaly Extremities: Warm, well perfused. DP pulses 2+ b/l. No clubbing, cyanosis. No edema Skin: Intact. No rashes, bruises, or ulcers. Tattoos widespread Neuro: Awake, fully oriented. Moderate memory, decent concentration and attention. Speech fluent. CN II-XII grossly intact. Strength 5/5 in b/l UE and LE. No tremor. - Assessment and Plan (1) Dehydration Current Visit: Yes Status: Acute Assessment and Plan: Patient presented with dizziness upon standing which is been occurring past couple of days as well as significant weight loss-he has been drinking alcohol daily and as had difficulty swallowing fluids and has had poor oral intake. We will continue the IV fluids for now Monitor electrolytes (2) Alcohol abuse Current Visit: Yes Status: Acute Assessment and Plan: Patient admits to alcohol abuse states that he has been sober for the past 2 months previously he drank for 2 years and that he went into rehabilitation. For the past week he has been drinking approximately 6 beers a day he states that he has been under a lot of stress both financially and personally. We will continue with CIWA for now does not appear to be withdrawing (3) Diabetes Current Visit: Yes Status: Acute Assessment and Plan: Patient states he was recently diagnosed with diabetes currently on insulin A1c was 8.2- does have neuropathy Continue with Accu-Cheks before meals at bedtime with sliding scale insulin (4) Unintentional weight loss Current Visit: Yes Status: Acute Assessment and Plan: Patient states that he has had unintentional weight loss of approximately 30 pounds over the past 6 months-is most likely could be related to alcohol abuse as well as anxiety. Patient states he is having difficulty swallowing solids and liquids. GI was consulted and patient underwent EGD today (5) Anxiety Current Visit: Yes Status: Acute Assessment and Plan: Patient states that he has been under a lot of stress financially and personally states he has trouble sleeping at night and worries a lot. He states he has been taking his medications however this has not been helping him and days been self Medicating with alcohol. He denies any suicidal ideations however his states that he has threatened to harm himself at home and she has become fearful and has hidden guns from him. Patient repeatedly states "I do not know what I am going to do" he also states that he is overwhelmed at times he becomes tearful. We will consult psychiatry-recommending Vistaril at this time Continue with patient's BuSpar as well as Zoloft. (6) Postural dizziness Current Visit: Yes Status: Acute Assessment and Plan: Patient has been experiencing feelings of lightheadedness and weakness patient states he has not been eating much past few days and has been drinking a lot of alcohol. He has been having difficulty swallowing. Suspect this may be dehydration in nature continue with IV fluids obtain orthostatic vital signs patient is on fall precautions (7) Dysphagia Current Visit: Yes Status: Acute Assessment and Plan: Patient has been experiencing difficulty swallowing and has had a 30 pound weight loss in the past 6 months. 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
[2019-03-01 11:04] LABS: BUN/Creatinine Ratio 6 (6-26); Blood Urea Nitrogen 4 mg/dL (6-20); Calcium 8.8 mg/dL (8.6-10.3); Carbon Dioxide 27 mEq/L (23-29); Chloride 100 mEq/L (98-107); Glucose 184 mg/dL (70-105); Osmolality,Calculated 284 (280-300); Potassium 3.6 mEq/L (3.5-5.1); Sodium 136 mEq/L (136-145); eGFR For African Americans > 60 (> 60); eGFR For Non-African Americans > 60 (> 60)
[2019-03-01] MEDS ORDERED: *HR* Propofol 200 MG/20 ML VIAL IVP ONE (13:05)
[2019-03-01] MEDS ORDERED: Lidocaine -MPF 2% 2 ML VIAL ONE (13:05)
[2019-03-01] MEDS ORDERED: *HR* Midazolam HCl 2 MG/2 ML VIAL ONE (13:46)
--- NOTE | 2019-03-01 13:51 | Anesthesia Evaluation PreOp ---
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: Other (diabetic neuropathy, anxiety, depression, fibromyalgia) Other Medical History: Diabetes Type II, Other (dysphagia, 6-12 beers a night) Alcohol Use: heavy Drug use: none Medications and Allergies Gabapentin [Neurontin] 600 mg PO HS 02/27/19 [History] Nadolol 20 mg PO HS 02/27/19 [History] Sertraline [Zoloft] 50 mg PO HS 02/27/19 [History] Acamprosate Calcium 333 mg PO TID 03/01/19 [History] Atorvastatin Calcium [Lipitor] 20 mg PO DAILY 03/01/19 [History] DULoxetine [Cymbalta] 40 mg PO DAILY 03/01/19 [History] Insulin DETEMIR [Levemir Flextouch] 15 units SQ BID 03/01/19 [History] Melatonin 3 mg PO HS 03/01/19 [History] Allergy/AdvReac Type Severity Reaction Status Date / Time No Known Allergies Allergy Verified 03/01/19 08:35 - Meds/Allergy Pre-op Review Medications Reviewed: Yes Allergies Reviewed: Yes Beta Blockers on Current Med List: Yes (nadolol ) Anesthesia Results - Labs 02/28/19 07:56 03/01/19 10:35 - Imaging EKG: report reviewed Anesthesia Exam Vital Signs/O2 Sat/Glucose, Most Recent Temp Pulse Resp BP Pulse Ox 98.7 F 96 20 168/117 97 03/01/19 11:38 03/01/19 13:19 03/01/19 13:19 03/01/19 13:19 03/01/19 13:19 Blood Glucose* 167 Weight: 95 kg NPO (# of Hours): > 8 hr - HEENT Pupil (Motor): Pupils equal Mallampati: II Teeth: Poor dentition (multiple loose) Oral Opening: Greater than 3 - FLOAT REMOVER LOC: Oriented - Cardiac Rhythm: Regular Murmur: None - Pulmonary Breath Sounds: bilateral Clear Respiratory Effort: Symmetrical Anesthesia Assess/Plan ASA Score: 2 Level of consciousness: Cooperative, Oriented Anesthetic Plan: MAC Monitoring Plan: Standard Monitors Recovery Plan: PACU
--- NOTE | 2019-03-01 14:22 | Anesthesia Evaluation Post Op ---
Date of Encounter: 03/01/19 Time of Encounter: 14:22 - Vital Signs Vital Signs: Vital Signs/O2 Sat/Glucose, Most Recent Temp Pulse Resp BP Pulse Ox 98.7 F 96 18 157/107 98 03/01/19 11:38 03/01/19 13:50 03/01/19 13:50 03/01/19 13:50 03/01/19 13:50 Blood Glucose* 167 - Lungs Lungs: Clear Ascult./Percussion - Airway Airway: Non-obstructed - Cardiovascular Regular Rate - Mental Status Mental Status: Alert & Oriented, Answers Appropriately - Pain Pain Scale: 0 - Nausea Vomiting Nausea Vomiting: Not Present - Hydration Hydration: NPO - Discharge PostOp Status: Transfer Patient to floor
[2019-03-01] MEDS: Thiamine (B-1) 100 MG, Folic Acid 1 MG, MVI, adult with vitamin K 10 ML in 0.9 % Sodi... IVPB SCH (18:14)
[2019-03-01] MEDS: Gabapentin 300 MG CAPSULE PO SCH (20:35)
[2019-03-01] MEDS: hydrOXYzine pamoate 25 MG CAPSULE PO PRN (20:35)
[2019-03-02] MEDS ORDERED: diazePAM 10 MG/2 ML SYRINGE IVP STA (02:02)
--- NOTE | 2019-03-02 04:36 | Electrocardiograph Report ---
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
[2019-03-02] MEDS ORDERED: Haloperidol Lactate 5 MG/ML VIAL IVP ONE (04:40)
[2019-03-02] MEDS ORDERED: *HR* Promethazine 25 MG/ML VIAL IVP ONE (04:41)
[2019-03-02 05:59] LABS: Basophils % 0.4 %; Eosinophils # 0.1 K/mcL (0.0-0.6); Eosinophils % 1.1 %; Hematocrit 48.4 % (37.5-50.1); Immature Granulocytes % 0.6 % (0-4); Lymphocytes # 2.5 K/mcL (0.6-4.6); Lymphocytes % 34.8 %; Mean Corpuscular HGB Conc 33.1 g/dL (31.6-35.5); Mean Corpuscular Hemoglobin 28.6 pg (28.0-33.3); Mean Corpuscular Volume 86.6 fL (83.0-100.0); Mean Platelet Volume 11.2 fL (9.4-12.4); Monocytes # 0.7 K/mcL (0.0-1.3); Monocytes % 10.3 %; Neutrophils # 3.8 K/mcL (1.6-8.9); Platelet Count 125 K/mcL (140-400); Red Blood Count 5.59 M/mcL (4.19-5.50); Red Cell Distribution Width 11.9 % (11.5-14.5); Segmented Neutrophils % 52.8 %; White Blood Count 7.1 K/mcL (4.3-11.1)
[2019-03-02 06:09] LABS: Prothrombin Time 11.5 Seconds (9.4-12.1)
[2019-03-02] MEDS ORDERED: Lidocaine -MPF 2% 2 ML VIAL ONE (06:19)
[2019-03-02] MEDS ORDERED: *HR* Propofol 200 MG/20 ML VIAL IVP ONE (06:19)
[2019-03-02 06:59] LABS: Adenovirus F 40/41 PCR Not detected (Not detect); Astrovirus PCR Not detected (Not detect); Campylobacter by PCR Not detected (Not detect); Cryptosporidium by PCR Not detected (Not detect); Cyclospora cayetanensis PCR Not detected (Not detect); E. coli O157 by PCR Not detected (Not detect); Entamoeba histolytica PCR Not detected (Not detect); Enteroaggregative E.coli(EAEC) Not detected (Not detect); Enteropathogenic E.coli(EPEC) Not detected (Not detect); Enterotoxigenic E.coli (ETEC) Not detected (Not detect); Giardia lamblia PCR Not detected (Not detect); Norovirus GI/GII PCR Not detected (Not detect); Plesiomonas shigelloides PCR Not detected (Not detect); Rotavirus A PCR Not detected (Not detect); Salmonella PCR Not detected (Not detect); Sapovirus PCR Not detected (Not detect); Shig/EnteroinvasiveE coli EIEC Not detected (Not detect); Shigalike tox-prod E coli STEC Not detected (Not detect); Vibrio PCR Not detected (Not detect); Vibrio cholerae PCR Not detected (Not detect); Yersinia enterocolitica PCR Not detected (Not detect)
[2019-03-02 07:01] LABS: C.difficile Toxin A/B Gene PCR DETECTED (Not detect)
[2019-03-02] MEDS: Insulin LISPRO 300 UNITS/3 ML VIAL SQ SCH ×4 (08:06→21:04)
[2019-03-02] MEDS ORDERED: 0.9 % Sodium Chloride 1,000 ML IVC SCH ×2 (08:30→10:00)
--- NOTE | 2019-03-02 08:46 | Anesthesia Evaluation PreOp ---
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: Other (alcoholism (currently appears to be having symptoms of withdrawal); anxiety/depression, diabetic neuropathy) Other Medical History: Diabetes Type II (uses insulin), Other (currently with C dif) Anesthesia History: No Prior Anesthetic Complications Alcohol Use: heavy Drug use: none Medications and Allergies Gabapentin [Neurontin] 600 mg PO HS 02/27/19 [History] Nadolol 20 mg PO HS 02/27/19 [History] Sertraline [Zoloft] 50 mg PO HS 02/27/19 [History] Acamprosate Calcium 333 mg PO TID 03/01/19 [History] Atorvastatin Calcium [Lipitor] 20 mg PO DAILY 03/01/19 [History] DULoxetine [Cymbalta] 40 mg PO DAILY 03/01/19 [History] Insulin DETEMIR [Levemir Flextouch] 15 units SQ BID 03/01/19 [History] Melatonin 3 mg PO HS 03/01/19 [History] Allergy/AdvReac Type Severity Reaction Status Date / Time No Known Allergies Allergy Verified 03/01/19 08:35 - Meds/Allergy Pre-op Review Medications Reviewed: Yes Allergies Reviewed: Yes Beta Blockers on Current Med List: Yes (nadolol) If Beta Blockers taken, Date/Time (Last Dose taken): 03-01-19 nadolol at 20:41 Anesthesia Results - Labs 03/02/19 05:28 03/01/19 10:35 - Imaging EKG: report reviewed, image reviewed (SINUS TACHYCARDIA WITH SHORT [place] INTERVAL NONSPECIFIC T-WAVE ABNORMALITY ABNORMAL RHYTHM ECG) Anesthesia Exam Last Vital Signs Temp 98.6 F 03/02/19 08:23 Pulse 87 03/02/19 08:23 Resp 16 03/02/19 08:23 BP 157/108 03/02/19 08:23 Pulse Ox 94 03/02/19 08:23 Weight: 97 kg NPO (# of Hours): > 8 hrs - HEENT Pupil (Motor): Pupils equal, EOMI Mallampati: II Teeth: Poor dentition (multiple loose teeth) Oral Opening: Greater than 3 - DIMENSIONAL INSPECTOR LOC: Oriented - Cardiac Rhythm: Regular Murmur: None - Pulmonary Breath Sounds: bilateral Clear Respiratory Effort: Symmetrical Anesthesia Assess/Plan ASA Score: 2 Level of consciousness: Cooperative Anesthetic Plan: MAC Monitoring Plan: Standard Monitors Recovery Plan: PACU
[2019-03-02] MEDS ORDERED: *HR* Midazolam HCl 5 MG/5 ML VIAL IVP ONE ×2 (08:50)
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
[2019-03-02] MEDS: 0.9 % Sodium Chloride 1,000 ML IVC SCH (12:09)
[2019-03-02 12:43] LABS: BUN/Creatinine Ratio 5 (6-26); Blood Urea Nitrogen 3 mg/dL (6-20); Calcium 8.9 mg/dL (8.6-10.3); Carbon Dioxide 26 mEq/L (23-29); Chloride 101 mEq/L (98-107); Glucose 226 mg/dL (70-105); Osmolality,Calculated 290 (280-300); Potassium 3.5 mEq/L (3.5-5.1); Sodium 138 mEq/L (136-145); eGFR For African Americans > 60 (> 60); eGFR For Non-African Americans > 60 (> 60)
[2019-03-02] MEDS: Vancomycin Oral Soln 125 MG/2.5 ML UDC PO SCH ×3 (14:28→21:07)
[2019-03-02] MEDS: Thiamine (B-1) 100 MG, Folic Acid 1 MG, MVI, adult with vitamin K 10 ML in 0.9 % Sodi... IVPB SCH (17:47)
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
[2019-03-02] MEDS: Gabapentin 300 MG CAPSULE PO SCH (21:09)
[2019-03-02] MEDS: hydrOXYzine pamoate 25 MG CAPSULE PO PRN (22:32)
[2019-03-03] MEDS: hydrOXYzine pamoate 25 MG CAPSULE PO PRN ×2 (04:22→11:23)
[2019-03-03] MEDS: Insulin LISPRO 300 UNITS/3 ML VIAL SQ SCH ×2 (08:35→12:24)
[2019-03-03] MEDS: Vancomycin Oral Soln 125 MG/2.5 ML UDC PO SCH ×2 (08:41→12:31)
--- NOTE | 2019-03-03 09:14 | Psychiatry Progress Note ---
Date of Encounter: 03/03/19 Time of Encounter: 08:00 Subjective Interval history: Patient has been doing very well for the past 24 hours. He has been cooperative with no outbursts. He has consistently denied suicidal ideations for the past 2 days. While there have been concerns raised from his these were about incidents that occurred several weeks ago. He is currently very future oriented to get back to his job and make sure that he is able to drive his daughter back and forth to school. He said he would never harm himself because he would never hurt her. He said he has no violence history and no legal history. Sleep and appetite are improved. Review of Systems Psychiatric: Reports: anxiety. Denies: depression, suicidal ideation, homicidal ideation, auditory hallucinations, visual hallucinations Results - Vital Signs Vital Signs: Temp Pulse Resp BP Pulse Ox 98.7 F 99 16 143/98 96 03/03/19 08:22 03/03/19 08:22 03/03/19 08:22 03/03/19 08:22 03/03/19 08:22 - Labs Labs: Laboratory Results - last 24 hr 03/02/19 03/02/19 03/02/19 07:03 11:18 12:06 Sodium 138 Potassium 3.5 Chloride 101 Carbon Dioxide 26 BUN 3 L Creatinine 0.59 L Est GFR ( Amer) > 60 Est GFR (Non-Af Amer) > 60 BUN/Creatinine Ratio 5 L Glucose 226 H POC Glucose 173 H 184 H Calculated Osmolality 290 Calcium 8.9 03/02/19 03/02/19 17:46 18:54 Sodium Potassium Chloride Carbon Dioxide BUN Creatinine Est GFR ( Amer) Est GFR (Non-Af Amer) BUN/Creatinine Ratio Glucose POC Glucose 188 H 167 H Calculated Osmolality Calcium - Impressions ITS Impressions Chest X-Ray 02/27/19 20:16 IMPRESSION: No acute cardiopulmonary process D/ / Song Rivas / Song Rivas Interpreting Provider: Song Rivas Liver Ultrasound 02/28/19 10:00 IMPRESSION: Unremarkable right upper quadrant ultrasound. D/ / Edson Boyer MD / Edson Boyer MD Interpreting Provider: Edson Boyer MD Echocardiogram 03/01/19 10:28 Impressions: LVEF 60-65%. Normal LV chamber size, wall thickness and function. Normal right ventricular structure and function. Mild tricuspid regurgitation. No pulmonary hypertension. Left Ventricular Wall Motion: Rest Echo Findings All wall segments showed normal motion. Findings: Study Quality * Technically adequate exam. ECG Findings * Normal sinus rhythm. Left Ventricle * LVEF 60-65%. * Normal LV chamber size, wall thickness and systolic function. * Normal left ventricular diastolic function. Right Ventricle * Normal right ventricular structure and function. Left Atrium * Normal left atrial size. Right Atrium * Normal right atrial size. Interatrial Septum * Interatrial septum not well evaluated. Aortic Valve * Trileaflet aortic valve with normal function. * No aortic stenosis. * No aortic regurgitation. Mitral Valve * Normal mitral valve structure. * No mitral stenosis. * Trace mitral regurgitation. Tricuspid Valve * Normal tricuspid valve structure. * No tricuspid stenosis. * Mild tricuspid regurgitation. * Estimated RVSP is 24 mmHg. * Estimated RA pressure is 3 mmHg. * No pulmonary hypertension. Pulmonic Valve * Pulmonic valve is not well visualized. * No pulmonic stenosis. * No pulmonic regurgitation. Aorta * Normally sized aortic root. Pericardium * The pericardium appears normal. IVC * The IVC is not dilated. * > 50% respiratory change Assessment and Plan (1) Major depressive disorder Current visit: Yes Status: Acute Additional Plan: Patient has unspecified anxiety, major depressive disorder, and alcohol use disorder. He had been on a pink slip due to the concerns raised by his spouse of prior suicidal comments. However he has done very well and the last day and throughout his hospital stay he has not endorsed any suicidal thoughts and has demonstrated future orientation. As such he no longer meets pink slip criteria. He is agreeable to raising Zoloft 200 mg by mouth every morning for both his anxiety and depression and I do recommend this. I would also recommend that primary team informed his to remove all weapons permanently although she has indicated that they are currently hidden and he does not know where they are. Encourage AA meetings and follow up with mental health. Risks, benefits, side effects, alternatives discussed w/pt: Yes Patient agreeable to treatment: Yes Qualifiers: Major depression recurrence: recurrent Active/Remission status: currently active Major depression episode severity: severe Psychotic features: without psychotic features Qualified Code(s): F33.2 - Major depressive disorder, recurrent severe without psychotic features Consult Discharge Plan - Plan Referrals: NONE,PCP [Primary Care Provider] - Psychiatry Exam - Constitutional Vitals: Temp Pulse Resp BP Pulse Ox 98.7 F 99 16 143/98 96 03/03/19 08:22 03/03/19 08:22 03/03/19 08:22 03/03/19 08:22 03/03/19 08:22 General appearance: age & developmentally appropriate, well-groomed, well- nourished - Musculoskeletal Gait: normal Station: relaxed Strength & Tone: normal for patient - Psychiatric Patient Orientation: Yes Person, Yes Time, Yes Place, Yes Circumstance Level of alertness: Alert Behavior: calm, cooperative Psychomotor activity: Normal Eye Contact: Maintains Eye Contact Mood Description: Euthymic/stable Patient description of mood: Better Affect description: congruent with mood, full range Speech Volume: Normal Speech pattern: normal rate, normal rhythm, normal tone, fluent, spontaneous Language & Vocabulary: consistent with education Thought Process: Linear, Goal Oriented Thought Content: No Suicidal ideation, No Homicidal ideation, No Overt delusions Perceptual Disturbances: No Auditory hallucinations, No Visual hallucinations Attention Span Ability: Capable of Focused Attention Memory Description: Grossly Intact Patient Reliability: Reliable Historian Fund of knowledge: Yes abstraction ability, Yes aware of current events Intelligence Estimate: Average Judgment: Good Insight: Full
[2019-03-03 09:23] LABS: Basophils % 0.5 %; Eosinophils # 0.1 K/mcL (0.0-0.6); Eosinophils % 1.5 %; Hemoglobin 16.6 g/dL (12.9-16.9); Immature Granulocytes % 0.8 % (0-4); Lymphocytes # 2.6 K/mcL (0.6-4.6); Lymphocytes % 33.3 %; Mean Corpuscular HGB Conc 33.9 g/dL (31.6-35.5); Mean Corpuscular Hemoglobin 28.6 pg (28.0-33.3); Mean Corpuscular Volume 84.5 fL (83.0-100.0); Mean Platelet Volume 11.7 fL (9.4-12.4); Monocytes # 0.7 K/mcL (0.0-1.3); Neutrophils # 4.4 K/mcL (1.6-8.9); Platelet Count 165 K/mcL (140-400); Red Cell Distribution Width 12.1 % (11.5-14.5); Segmented Neutrophils % 54.9 %; White Blood Count 7.9 K/mcL (4.3-11.1)
[2019-03-03 09:39] LABS: BUN/Creatinine Ratio 3 (6-26); Blood Urea Nitrogen 2 mg/dL (6-20); Calcium 9.2 mg/dL (8.6-10.3); Carbon Dioxide 26 mEq/L (23-29); Chloride 100 mEq/L (98-107); Glucose 282 mg/dL (70-105); Osmolality,Calculated 290 (280-300); Potassium 3.4 mEq/L (3.5-5.1); Sodium 137 mEq/L (136-145); eGFR For African Americans > 60 (> 60); eGFR For Non-African Americans > 60 (> 60)
--- NOTE | 2019-03-03 09:49 | Discharge Summary ---
- NOTES TO OUTPATIENT PROVIDER Notes to Outpatient Provider: monitor Electrolytes -treated for c-diff dehydration. follow up with GI. 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 (4) Unintentional weight loss Priority: Secondary Status: Acute (5) Anxiety Priority: Secondary Status: Acute (6) Postural dizziness Priority: Secondary Status: Acute (7) Dysphagia Priority: Secondary Status: Acute Qualifiers: Dysphagia type: unspecified Qualified Code(s): R13.10 - Dysphagia, unspecified (8) Major depressive disorder Priority: Secondary Status: Acute Qualifiers: Major depression recurrence: recurrent Active/Remission status: currently active Major depression episode severity: severe Psychotic features: without psychotic features Qualified Code(s): F33.2 - Major depressive disorder, recurrent severe without psychotic features Hospital course: Mr. Gorman is a 38 year old male with history of alcohol use neuropathy diabetes depression/anxiety obesity originally presented to [facility] ED with complaints of dizziness upon standing which he states been happening frequently the past 2 days. He did have a fall approximately 3 weeks ago however denied any head trauma. He is also experiencing unintentional weight loss of past 6 months and has had difficulty swallowing solid food. He does have a history of alcohol abuse he did go through rehabilitation approximately 2 months ago and has been sober since then however in the past week he had family stressors and he began drinking approximately 6 beers a day. Lab work was obtained which did show some hyponatremia and urine tox was positive for marijuana. Patient was given IV fluids he had several loose stools which we sent for GI sample was positive for C. difficile. Patient was started on vancomycin. He was evaluated by GI and patient underwent EGD with dilatation of esophagus as well as gastritis-during the admission patient did express extreme anxiety and appeared distraught concerning his personal and financial life. His was concerned and express the patient has threatened to kill himself, she was so concerned that she did firearms from him. I titrated was consulted originally pink slipped the patient with concerns of suicidal ideations however adamantly denied any suicidal ideations and does display future orientation. He will longer meets ian baigped criteria-hoda chi recommending raising Zoloft 200 mg every morning for his anxiety depression he will need to follow-up with mental health as an outpatient. Patient is encouraged to follow-up with AA meetings-during admission patient did have some elevation in his blood pressure he was initiated on low-dose lisinopril-his lightheadedness did improve after receiving IV fluids he is ambulating without any difficulty. Advised patient follow-up with PCP GI and mental health. He will be given a prescription for Zoloft 200 mg daily Prilosec 20 mg daily lisinopril 10 mg daily and vancomycin 125 mg 4 times a day for 10 days. Currently patient is hemodynamically stable at this time and he is ready for discharge - Time Spent with Patient Total time spent providing and/or coordinating discharge services: - Discharge Medications Prescriptions: New Buspirone HCl [Buspar] 10 mg PO HS tablet Vancomycin Oral Soln [Firvanq] 125 mg PO QID 10 Days #40 udc Sertraline [Zoloft] 200 mg PO DAILY 30 Days #60 tablet Omeprazole [PriLOSEC] 20 mg PO DAILY #30 cap Lisinopril [Zestril] 5 mg PO DAILY 30 Days #30 tablet Continued Gabapentin [Neurontin] 600 mg PO HS Nadolol 20 mg PO HS Atorvastatin Calcium [Lipitor] 20 mg PO DAILY Discontinued Sertraline [Zoloft] 50 mg PO HS No Action Acamprosate Calcium 333 mg PO TID DULoxetine [Cymbalta] 40 mg PO DAILY Insulin DETEMIR [Levemir Flextouch] 15 units SQ BID Melatonin 3 mg PO HS Home Medications: Gabapentin [Neurontin] 600 mg PO HS 02/27/19 [History] Nadolol 20 mg PO HS 02/27/19 [History] Acamprosate Calcium 333 mg PO TID 03/01/19 [History] Atorvastatin Calcium [Lipitor] 20 mg PO DAILY 03/01/19 [History] DULoxetine [Cymbalta] 40 mg PO DAILY 03/01/19 [History] Insulin DETEMIR [Levemir Flextouch] 15 units SQ BID 03/01/19 [History] Melatonin 3 mg PO HS 03/01/19 [History] Buspirone HCl [Buspar] 10 mg PO HS tablet 03/03/19 [Rx] Lisinopril [Zestril] 5 mg PO DAILY 30 Days #30 tablet 03/03/19 [Rx] Omeprazole [PriLOSEC] 20 mg PO DAILY #30 cap 03/03/19 [Rx] Sertraline [Zoloft] 200 mg PO DAILY 30 Days #60 tablet 03/03/19 [Rx] Vancomycin Oral Soln [Firvanq] 125 mg PO QID 10 Days #40 udc 03/03/19 [Rx] Allergies/Adverse Reactions: Allergy/AdvReac Type Severity Reaction Status Date / Time No Known Allergies Allergy Verified 03/01/19 08:35 Date of admission: 02/28/19 04:42 Primary care physician: PCP NONE Consults: 02/28/19 10:37 Consult to Gastroenterology [CONS] Routine Consulting Provider: Gastroenterology Monserrat Reason for Consult: here for orthostatic hypotension and starvation ketosis likely all from EtOH intake, but with weight loss and regurgitation there could be dysphagia as contributor and thus patient warrants EGD Call Completed: Yes 03/01/19 10:57 Consult to Psychiatry [CONS] Routine Consulting Provider: Psychiatry Monserrat Reason consult: Other Other reason and/or additional details: Anxiety, depression- self medicating with ETOH Time Notified: 10:58 Call Completed: Yes Discharging clinician: Maral Lyman Anticipated date of discharge: 03/03/19 - Constitutional Vitals: Temp Pulse Resp BP Pulse Ox 98.7 F 99 16 143/98 96 03/03/19 08:22 03/03/19 08:22 03/03/19 08:22 03/03/19 08:22 03/03/19 08:22 Exam: General: NAD, initially disoriented upon awakening but subsequently AAOx3, good eye contact, disheveled/unkempt w long mendez, diffuse tattoos including face Head: Atraumatic, normocephalic. Face symmetric Eyes: EOMI, sclerae anicteric ENT: Mucous membranes moist. Normal oral mucosa and poor dentition. Trachea midline. No cervical lymphadenopathy Thoracic: No visible chest wall deformities. Normal breath sounds b/l, no wheezing or crackles Cardio: Normal S1 and S2, regular rhythm, tachycardic, no murmurs Abdomen: Soft, nontender, nondistended. Bowel sounds present. No rebound. Unable to detect any hepatosplenomegaly Extremities: Warm, well perfused. DP pulses 2+ b/l. No clubbing, cyanosis. No edema Skin: Intact. No rashes, bruises, or ulcers. Tattoos widespread Neuro: Awake, fully oriented. Moderate memory, decent concentration and attention. Speech fluent. CN II-XII grossly intact. Strength 5/5 in b/l UE and LE. No tremor. - Patient Status Disposition: Home, Self-Care Condition: Fair Functional capacity at discharge: independent ambulation Overall status at discharge: patient is back to baseline - Discharge Instructions Instructions: Vancomycin (By mouth), Anxiety (DC) Follow Up With: [facility] [Outside] (Please call to schedule hospital follow up.) [facility] [Outside] (Please call to schedule follow up appointment) Additional Instructions: Change positions slowly Stay hydrated Monitor blood pressure and keep a log Follow-up with residency clinic Follow-up with mental health AA meetings - Diet and Activity Activity: increase activity as tolerated Diet: advance to your usual diet
[2019-03-03 10:30] LABS: Alanine Aminotransferase 16 Units/L (7-52); Albumin 3.7 g/dL (3.5-5.7); Albumin/Globulin Ratio 1.4 (1.1-2.2); Alkaline Phosphatase 99 Units/L (34-104); Aspartate Amino Transferase 19 Units/L (13-39); Bilirubin,Direct 0.2 mg/dL (0.0-0.2); Bilirubin,Indirect 0.6 mg/dL (0.0-1.2); Bilirubin,Total 0.8 mg/dL (0.3-1.0); Globulin 2.6 g/dL (2.4-3.5); Total Protein 6.3 g/dL (6.4-8.9)
[2019-03-03] MEDS ORDERED: 0.9 % Sodium Chloride 1,000 ML IVC ONE (10:41)
[2019-03-03 12:15] VITALS: BP 124/90
== END 2019-03-03 15:20 | disposition home or self-care (01) ==
LOC: EMEROOARM 19:13 → 3BNU 19:13 → SUATTDRO 02-28 04:42 → 3BNU 02-28 05:55
PROVIDERS: ADMIT Internal Medicine; ATTEND Internal Medicine
PROC: ENDOORB (2019-03-02 08:00)

== ENCOUNTER 2019-09-28 17:31 | Inpatient (IN) ==
[2019-09-28 17:55] LABS: Basophils % 0.2 %; Hematocrit 21.8 % (37.5-50.1); Hemoglobin 7.8 g/dL (12.9-16.9); Immature Granulocytes % 1.5 % (0-4); Lymphocytes # 1.4 K/mcL (0.6-4.6); Lymphocytes % 11.9 %; Mean Corpuscular HGB Conc 35.8 g/dL (31.6-35.5); Mean Corpuscular Hemoglobin 30.8 pg (28.0-33.3); Mean Corpuscular Volume 86.2 fL (83.0-100.0); Mean Platelet Volume 8.9 fL (9.4-12.4); Monocytes % 8.2 %; Neutrophils # 9.1 K/mcL (1.6-8.9); Platelet Count 235 K/mcL (140-400); Red Blood Count 2.53 M/mcL (4.19-5.50); Red Cell Distribution Width 15.3 % (11.5-14.5); Segmented Neutrophils % 78.2 %; White Blood Count 11.6 K/mcL (4.3-11.1)
[2019-09-28 18:15] LABS: Acetaminophen < 10 mcg/mL (10-20); BUN/Creatinine Ratio 14 (6-26); Blood Urea Nitrogen 20 mg/dL (6-20); Calcium 9.5 mg/dL (8.6-10.3); Carbon Dioxide 28 mEq/L (23-29); Chloride 74 mEq/L (98-107); Ethanol < 10 mg/dL (Less than 10); Glucose 65 mg/dL (70-105); Osmolality,Calculated 257 (280-300); Potassium 3.1 mEq/L (3.5-5.1); Salicylate < 2.5 mg/dL (15.0-30.0); Sodium 123 mEq/L (136-145); eGFR For African Americans > 60 (> 60); eGFR For Non-African Americans 56 (> 60)
[2019-09-28] MEDS ORDERED: Potassium Chloride Elixir 20 MEQ/15 ML UDC PO ONE (19:00)
[2019-09-28] MEDS ORDERED: 0.9 % Sodium Chloride 1,000 ML IV ONE (19:37)
[2019-09-28 20:13] LABS: Basophils % 0.2 %; Hematocrit 19.9 % (37.5-50.1); Hemoglobin 7.1 g/dL (12.9-16.9); Lymphocytes # 1.6 K/mcL (0.6-4.6); Lymphocytes % 14.5 %; Mean Corpuscular HGB Conc 35.7 g/dL (31.6-35.5); Mean Corpuscular Hemoglobin 31.1 pg (28.0-33.3); Mean Corpuscular Volume 87.3 fL (83.0-100.0); Mean Platelet Volume 8.9 fL (9.4-12.4); Monocytes # 0.9 K/mcL (0.0-1.3); Monocytes % 8.4 %; Neutrophils # 8.3 K/mcL (1.6-8.9); Platelet Count 215 K/mcL (140-400); Red Blood Count 2.28 M/mcL (4.19-5.50); Red Cell Distribution Width 15.3 % (11.5-14.5); Segmented Neutrophils % 75.9 %; White Blood Count 10.9 K/mcL (4.3-11.1)
[2019-09-28 20:17] LABS: INR 1.2; Prothrombin Time 13.7 Seconds (9.4-12.1)
[2019-09-28] MEDS ORDERED: Isovue-370 500 ML BOTTLE IVP ONE (20:30)
[2019-09-28 20:34] LABS: BUN/Creatinine Ratio 16 (6-26); Blood Urea Nitrogen 21 mg/dL (6-20); Calcium 9.1 mg/dL (8.6-10.3); Carbon Dioxide 29 mEq/L (23-29); Chloride 75 mEq/L (98-107); Glucose 65 mg/dL (70-105); Osmolality,Calculated 257 (280-300); Potassium 3.3 mEq/L (3.5-5.1); Sodium 123 mEq/L (136-145); eGFR For African Americans > 60 (> 60); eGFR For Non-African Americans 60 (> 60)
[2019-09-28 21:06] LABS: Bilirubin,Urine Small (Negative); Blood,Urine Negative (Negative); Color,Urine Dark Yellow (Yellow); Glucose,Urine (UA) Normal (Normal); Ketones,Urine Negative (Negative); Leukocyte Esterase,Urine Trace (Negative); Nitrite,Urine Negative (Negative); Protein,Urine Negative (Neg-Trace); Specific Gravity,Urine 1.013 (1.010-1.025)
[2019-09-28 21:08] LABS: Bacteria,Urine None Seen per hpf (None-Few); Hyaline Casts,Urine None Seen per lpf (None-Few); RBC,Urine 0-3 per hpf (0-3); Squamous Epithelial Cell,Urine Moderate per lpf (None-Few); WBC,Urine 0-3 per hpf (0-3)
[2019-09-28 21:11] LABS: Clarity,Urine Slightly Hazy (Clear)
[2019-09-28 21:16] LABS: Amphetamine Screen,Urine Negative ng/mL (Cutoff=1000); Barbiturate Screen,Urine Negative ng/mL (Cutoff=200); Benzodiazepines Screen,Urine Negative ng/mL (Cutoff=200); Cannabinoid Screen,Urine Negative ng/mL (Cutoff = 50); Cocaine Screen,Urine Negative ng/mL (Cutoff= 300); Opiate Screen,Urine Negative ng/mL (Cutoff=300); Phencyclidine Screen,Urine Negative ng/mL (Cutoff=25)
[2019-09-28 22:20] LABS: Alanine Aminotransferase 9 Units/L (7-52); Albumin 3.1 g/dL (3.5-5.7); Albumin/Globulin Ratio 1.1 (1.1-2.2); Alkaline Phosphatase 148 Units/L (34-104); Aspartate Amino Transferase 28 Units/L (13-39); Bilirubin,Direct 0.4 mg/dL (0.0-0.2); Bilirubin,Indirect 0.7 mg/dL (0.0-1.0); Bilirubin,Total 1.1 mg/dL (0.3-1.0); Globulin 2.8 g/dL (2.4-3.5); Total Protein 5.9 g/dL (6.4-8.9)
[2019-09-28] MEDS ORDERED: Naloxone 0.4 MG/ML INJ IVP PRN (22:52)
[2019-09-28] MEDS ORDERED: 0.9 % Sodium Chloride 1,000 ML IVC SCH (23:00)
[2019-09-28] MEDS ORDERED: Dextrose Gel 15 GM/37.5 ML TUBE PO PRN ×2 (23:01)
[2019-09-28] MEDS ORDERED: *HR* Dextrose 50 % in Water (Syg) 50 ML SYRINGE IVP PRN (23:01)
[2019-09-28] MEDS ORDERED: D5% in Water 1,000 ML IVC PRN (23:01)
[2019-09-28] MEDS ORDERED: *HR* LORazepam 2 MG/ML VIAL IVP PRN ×3 (23:02)
[2019-09-28 23:22] LABS: % Iron Saturation 87 % (20-55); Iron 217 mcg/dL (65-175); Lactate Dehydrogenase 185 Units/L (140-271); Transferrin 178 mg/dL (203-362)
[2019-09-28 23:42] LABS: Ferritin > 1500 ng/mL (20-250)
[2019-09-28 23:48] LABS: Folate 5.2 ng/mL (3.0-16.0)
[2019-09-29 00:37] LABS: BUN/Creatinine Ratio 17 (6-26); Blood Urea Nitrogen 20 mg/dL (6-20); Calcium 8.4 mg/dL (8.6-10.3); Carbon Dioxide 26 mEq/L (23-29); Chloride 80 mEq/L (98-107); Glucose 64 mg/dL (70-105); Osmolality,Calculated 259 (280-300); Potassium 3.4 mEq/L (3.5-5.1); Sodium 124 mEq/L (136-145); eGFR For African Americans > 60 (> 60); eGFR For Non-African Americans > 60 (> 60)
[2019-09-29] MEDS: polyethylene glycoL 3350 17 GM POWD.PACK PO SCH ×2 (00:37→08:26)
[2019-09-29] MEDS ORDERED: Potassium Chloride Elixir 20 MEQ/15 ML UDC GTUBE ONE (00:59)
[2019-09-29] MEDS: Insulin LISPRO 300 UNITS/3 ML VIAL SQ SCH ×5 (01:01→19:48)
[2019-09-29] MEDS: Gabapentin 300 MG CAPSULE PO SCH ×5 (01:33→19:53)
[2019-09-29 01:50] LABS: Basophils % 0.2 %; Eosinophils % 0.1 %; Hematocrit 18.3 % (37.5-50.1); Hemoglobin 6.4 g/dL (12.9-16.9); Lymphocytes # 1.6 K/mcL (0.6-4.6); Mean Corpuscular Hemoglobin 31.1 pg (28.0-33.3); Mean Corpuscular Volume 88.8 fL (83.0-100.0); Mean Platelet Volume 9.3 fL (9.4-12.4); Monocytes # 0.8 K/mcL (0.0-1.3); Neutrophils # 6.5 K/mcL (1.6-8.9); Platelet Count 198 K/mcL (140-400); Red Blood Count 2.06 M/mcL (4.19-5.50); Red Cell Distribution Width 15.3 % (11.5-14.5); Segmented Neutrophils % 71.7 %
[2019-09-29 01:59] LABS: Alanine Aminotransferase 8 Units/L (7-52); Albumin 3.1 g/dL (3.5-5.7); Albumin/Globulin Ratio 1.2 (1.1-2.2); Alkaline Phosphatase 143 Units/L (34-104); Aspartate Amino Transferase 26 Units/L (13-39); BUN/Creatinine Ratio 16 (6-26); Blood Urea Nitrogen 19 mg/dL (6-20); Calcium 8.4 mg/dL (8.6-10.3); Carbon Dioxide 26 mEq/L (23-29); Chloride 80 mEq/L (98-107); Globulin 2.6 g/dL (2.4-3.5); Glucose 83 mg/dL (70-105); Magnesium 1.9 mg/dL (1.6-2.6); Osmolality,Calculated 261 (280-300); Phosphorous 6.7 mg/dL (2.7-4.5); Potassium 3.3 mEq/L (3.5-5.1); Sodium 125 mEq/L (136-145); Total Protein 5.7 g/dL (6.4-8.9); eGFR For African Americans > 60 (> 60); eGFR For Non-African Americans > 60 (> 60)
[2019-09-29] MEDS: Potassium Chloride 40 MEQ in D5% in 0.9% NACL 1,000 ML IVC SCH ×3 (02:53→23:18)
[2019-09-29] MEDS ORDERED: 0.9 % Sodium Chloride 250 ML ONE (03:52)
[2019-09-29 04:11] LABS: ABG Base Excess 4 mEq/L (-2 to 3); ABG HCO3 26 mEq/L (21-27); ABG Oxygen Saturation 96 % (95-98); ABG PCO2 28 mmHg (35-45); ABG PH 7.58 pH Units (7.32-7.45); ABG PO2 69 mmHg (85-104); ABG TCO2 27 mEq/L (20-26)
[2019-09-29 04:25] LABS: BUN/Creatinine Ratio 17 (6-26); Blood Urea Nitrogen 20 mg/dL (6-20); Calcium 8.4 mg/dL (8.6-10.3); Carbon Dioxide 27 mEq/L (23-29); Chloride 81 mEq/L (98-107); Glucose 98 mg/dL (70-105); Osmolality,Calculated 265 (280-300); Potassium 4.1 mEq/L (3.5-5.1); Sodium 126 mEq/L (136-145); eGFR For African Americans > 60 (> 60); eGFR For Non-African Americans > 60 (> 60)
[2019-09-29 07:33] LABS: BUN/Creatinine Ratio 18 (6-26); Blood Urea Nitrogen 19 mg/dL (6-20); Calcium 8.3 mg/dL (8.6-10.3); Carbon Dioxide 28 mEq/L (23-29); Chloride 83 mEq/L (98-107); Glucose 90 mg/dL (70-105); Osmolality,Calculated 266 (280-300); Potassium 3.7 mEq/L (3.5-5.1); Sodium 127 mEq/L (136-145); eGFR For African Americans > 60 (> 60); eGFR For Non-African Americans > 60 (> 60)
[2019-09-29] MEDS: *HR* LORazepam 0.5 MG TABLET PO SCH ×4 (08:26→19:53)
[2019-09-29 11:49] LABS: Hemoglobin 7.2 g/dL (12.9-16.9)
[2019-09-29] MEDS ORDERED: Dextrose Gel 15 GM/37.5 ML TUBE PO PRN ×2 (14:29)
[2019-09-29] MEDS ORDERED: D5% in Water 1,000 ML IVC PRN (14:29)
[2019-09-29] MEDS ORDERED: *HR* Dextrose 50 % in Water (Syg) 50 ML SYRINGE IVP PRN (14:29)
[2019-09-29] MEDS: Thiamine (B-1) 100 MG, Folic Acid 1 MG, MVI, adult with vitamin K 10 ML in 0.9 % Sodi... IVPB SCH (17:04)
[2019-09-29] MEDS: Melatonin 3 MG TABLET PO SCH (19:53)
[2019-09-30 01:56] LABS: Immature Reticulocyte % 12.5 % (11.0-38.0); Reticulocyte % 0.1 % (1.6-2.8)
[2019-09-30 01:57] LABS: Basophils % 0.3 %; Eosinophils # 0.1 K/mcL (0.0-0.6); Hematocrit 19.7 % (37.5-50.1); Hemoglobin 6.6 g/dL (12.9-16.9); Immature Granulocytes % 1.9 % (0-4); Lymphocytes # 2.3 K/mcL (0.6-4.6); Lymphocytes % 39.7 %; Mean Corpuscular HGB Conc 33.5 g/dL (31.6-35.5); Mean Corpuscular Hemoglobin 30.1 pg (28.0-33.3); Mean Platelet Volume 8.7 fL (9.4-12.4); Monocytes # 0.5 K/mcL (0.0-1.3); Monocytes % 8.6 %; Neutrophils # 2.9 K/mcL (1.6-8.9); Platelet Count 192 K/mcL (140-400); Red Blood Count 2.19 M/mcL (4.19-5.50); Red Cell Distribution Width 15.5 % (11.5-14.5); Segmented Neutrophils % 48.5 %; White Blood Count 5.9 K/mcL (4.3-11.1)
[2019-09-30 02:15] LABS: Phosphorous 3.9 mg/dL (2.7-4.5)
[2019-09-30 02:16] LABS: BUN/Creatinine Ratio 18 (6-26); Blood Urea Nitrogen 13 mg/dL (6-20); Calcium 8.2 mg/dL (8.6-10.3); Carbon Dioxide 29 mEq/L (23-29); Chloride 92 mEq/L (98-107); Creatine Kinase 210 Units/L (30-223); Glucose 122 mg/dL (70-105); Osmolality,Calculated 271 (280-300); Potassium 3.9 mEq/L (3.5-5.1); Sodium 130 mEq/L (136-145); Uric Acid 5.5 mg/dL (2.3-7.6); eGFR For African Americans > 60 (> 60); eGFR For Non-African Americans > 60 (> 60)
[2019-09-30 02:56] LABS: Hepatitis B Surface Antigen Nonreactive (Nonreactive)
[2019-09-30 02:57] LABS: Thyroid Stimulating Hormone 2.949 mcIU/mL (0.340-5.600)
[2019-09-30 03:25] LABS: Hepatitis C Virus Antibody Nonreactive (Nonreactive)
[2019-09-30 03:26] LABS: Hepatitis A Antibody IgM Nonreactive (Nonreactive)
[2019-09-30] MEDS ORDERED: 0.9 % Sodium Chloride 250 ML IVC SCH (04:00)
[2019-09-30] MEDS: Insulin LISPRO 300 UNITS/3 ML VIAL SQ SCH ×4 (08:04→21:15)
[2019-09-30] MEDS: *HR* LORazepam 0.5 MG TABLET PO SCH ×4 (08:05→20:23)
[2019-09-30] MEDS: Gabapentin 300 MG CAPSULE PO SCH ×4 (08:05→20:23)
[2019-09-30] MEDS: polyethylene glycoL 3350 17 GM POWD.PACK PO SCH (08:10)
[2019-09-30 08:21] LABS: Estimated Average Glucose 186 mg/dl
[2019-09-30] MEDS: Potassium Chloride 40 MEQ in D5% in 0.9% NACL 1,000 ML IVC SCH ×2 (10:37→23:48)
[2019-09-30 11:45] LABS: Hematocrit 24.1 % (37.5-50.1)
[2019-09-30 11:46] LABS: Hemoglobin 8.3 g/dL (12.9-16.9)
[2019-09-30] MEDS: Pantoprazole 40 MG VIAL IVP SCH ×2 (11:53→17:07)
[2019-09-30] MEDS: Thiamine (B-1) 100 MG, Folic Acid 1 MG, MVI, adult with vitamin K 10 ML in 0.9 % Sodi... IVPB SCH (17:07)
[2019-09-30] MEDS: Melatonin 3 MG TABLET PO SCH (20:23)
[2019-10-01 01:44] LABS: BUN/Creatinine Ratio 11 (6-26); Blood Urea Nitrogen 8 mg/dL (6-20); Calcium 8.1 mg/dL (8.6-10.3); Carbon Dioxide 25 mEq/L (23-29); Chloride 94 mEq/L (98-107); Glucose 177 mg/dL (70-105); Osmolality,Calculated 267 (280-300); Phosphorous 2.5 mg/dL (2.7-4.5); Potassium 3.7 mEq/L (3.5-5.1); Sodium 127 mEq/L (136-145); eGFR For African Americans > 60 (> 60); eGFR For Non-African Americans > 60 (> 60)
[2019-10-01 03:58] LABS: Hematocrit 26.6 % (37.5-50.1); Hemoglobin 8.9 g/dL (12.9-16.9); Lymphocytes # 2.7 K/mcL (0.6-4.6); Mean Corpuscular HGB Conc 33.5 g/dL (31.6-35.5); Mean Corpuscular Hemoglobin 30.3 pg (28.0-33.3); Mean Corpuscular Volume 90.5 fL (83.0-100.0); Mean Platelet Volume 8.7 fL (9.4-12.4); Nucleated Red Blood Cells 0.5 /100 WBC (0); Platelet Count 175 K/mcL (140-400); Red Blood Count 2.94 M/mcL (4.19-5.50); Red Cell Distribution Width 15.9 % (11.5-14.5); White Blood Count 11.4 K/mcL (4.3-11.1)
[2019-10-01 04:21] LABS: Eosinophils # 0.5 K/mcL (0.0-0.6); Monocytes # 0.2 K/mcL (0.0-1.3); Neutrophils # 7.3 K/mcL (1.6-8.9); Platelet Estimate Normal (Normal)
[2019-10-01] MEDS: Pantoprazole 40 MG VIAL IVP SCH ×2 (05:58→16:24)
[2019-10-01] MEDS: Insulin LISPRO 300 UNITS/3 ML VIAL SQ SCH ×4 (08:06→21:08)
[2019-10-01] MEDS: *HR* LORazepam 0.5 MG TABLET PO SCH ×3 (08:12→21:07)
[2019-10-01] MEDS: Gabapentin 300 MG CAPSULE PO SCH ×4 (08:12→21:07)
[2019-10-01] MEDS: Potassium Chloride 40 MEQ in D5% in 0.9% NACL 1,000 ML IVC SCH ×2 (10:45→22:33)
[2019-10-01] MEDS ORDERED: Lidocaine -MPF 2% 2 ML VIAL ONE (11:11)
[2019-10-01] MEDS ORDERED: *HR* Propofol 200 MG/20 ML VIAL IVP ONE (11:46)
[2019-10-01] MEDS: Thiamine (B-1) 100 MG TABLET PO SCH (13:15)
[2019-10-01] MEDS: Melatonin 3 MG TABLET PO SCH (21:07)
[2019-10-02 01:55] LABS: Eosinophils # 0.2 K/mcL (0.0-0.6); Hematocrit 27.1 % (37.5-50.1); Mean Corpuscular HGB Conc 33.2 g/dL (31.6-35.5); Mean Corpuscular Hemoglobin 30.7 pg (28.0-33.3); Mean Corpuscular Volume 92.5 fL (83.0-100.0); Mean Platelet Volume 9.3 fL (9.4-12.4); Nucleated Red Blood Cells 1.4 /100 WBC (0); Platelet Count 209 K/mcL (140-400); Red Blood Count 2.93 M/mcL (4.19-5.50); Red Cell Distribution Width 15.5 % (11.5-14.5); White Blood Count 11.1 K/mcL (4.3-11.1)
[2019-10-02 02:14] LABS: Magnesium 1.8 mg/dL (1.6-2.6); Phosphorous 2.5 mg/dL (2.7-4.5)
[2019-10-02 02:15] LABS: BUN/Creatinine Ratio 7 (6-26); Blood Urea Nitrogen 5 mg/dL (6-20); Calcium 8.4 mg/dL (8.6-10.3); Carbon Dioxide 28 mEq/L (23-29); Chloride 103 mEq/L (98-107); Glucose 137 mg/dL (70-105); Osmolality,Calculated 281 (280-300); Potassium 4.2 mEq/L (3.5-5.1); Sodium 136 mEq/L (136-145); eGFR For African Americans > 60 (> 60); eGFR For Non-African Americans > 60 (> 60)
[2019-10-02 02:19] LABS: Anisocytosis 1+ (Not Present); Lymphocytes # 3.3 K/mcL (0.6-4.6); Macrocytosis Present (Not Present); Monocytes # 0.7 K/mcL (0.0-1.3); Neutrophils # 5.8 K/mcL (1.6-8.9); Polychromasia 1+ (Not Present)
[2019-10-02 02:20] LABS: Platelet Estimate Normal (Normal); Reactive Lymphocytes Present (Not Present)
[2019-10-02] MEDS: Pantoprazole 40 MG VIAL IVP SCH (06:18)
[2019-10-02] MEDS: Folic Acid 1 MG TABLET PO SCH (08:09)
[2019-10-02] MEDS: Thiamine (B-1) 100 MG TABLET PO SCH (08:09)
[2019-10-02] MEDS: Multivit/Ca/Min/Fe/FA 1 TAB TABLET PO SCH (08:10)
[2019-10-02] MEDS: *HR* LORazepam 0.5 MG TABLET PO SCH (08:10)
[2019-10-02] MEDS: Gabapentin 300 MG CAPSULE PO SCH ×4 (08:10→20:51)
[2019-10-02] MEDS: Insulin LISPRO 300 UNITS/3 ML VIAL SQ SCH ×4 (08:12→20:44)
[2019-10-02] MEDS: Potassium Chloride 40 MEQ in D5% in 0.9% NACL 1,000 ML IVC SCH ×2 (09:47→20:49)
[2019-10-02] MEDS: Melatonin 3 MG TABLET PO SCH (20:51)
[2019-10-03] MEDS: Magic Mouthwash 10 ML UD Cup PO PRN (00:24)
[2019-10-03] MEDS: *HR* LORazepam 0.5 MG TABLET PO PRN ×2 (00:24→15:04)
[2019-10-03 02:18] LABS: Hematocrit 26.8 % (37.5-50.1); Hemoglobin 8.6 g/dL (12.9-16.9); Mean Corpuscular HGB Conc 32.1 g/dL (31.6-35.5); Mean Corpuscular Hemoglobin 30.2 pg (28.0-33.3); Mean Platelet Volume 8.9 fL (9.4-12.4); Nucleated Red Blood Cells 1.3 /100 WBC (0); Platelet Count 200 K/mcL (140-400); Red Blood Count 2.85 M/mcL (4.19-5.50); White Blood Count 10.9 K/mcL (4.3-11.1)
[2019-10-03 02:30] LABS: BUN/Creatinine Ratio 7 (6-26); Blood Urea Nitrogen 5 mg/dL (6-20); Calcium 8.2 mg/dL (8.6-10.3); Carbon Dioxide 25 mEq/L (23-29); Chloride 105 mEq/L (98-107); Glucose 169 mg/dL (70-105); Osmolality,Calculated 283 (280-300); Phosphorous 3.1 mg/dL (2.7-4.5); Potassium 4.8 mEq/L (3.5-5.1); Sodium 136 mEq/L (136-145); eGFR For African Americans > 60 (> 60); eGFR For Non-African Americans > 60 (> 60)
[2019-10-03 02:53] LABS: Anisocytosis 1+ (Not Present); Macrocytosis Present (Not Present); Monocytes # 0.2 K/mcL (0.0-1.3); Neutrophils # 5.7 K/mcL (1.6-8.9); Platelet Estimate Normal (Normal); Reactive Lymphocytes Present (Not Present)
[2019-10-03 02:54] LABS: Polychromasia 1+ (Not Present)
[2019-10-03] MEDS ORDERED: *HR* LORazepam 1 MG TABLET PO ONE (04:48)
[2019-10-03] MEDS: Potassium Chloride 40 MEQ in D5% in 0.9% NACL 1,000 ML IVC SCH (07:12)
[2019-10-03] MEDS: Insulin LISPRO 300 UNITS/3 ML VIAL SQ SCH ×4 (08:13→21:31)
[2019-10-03] MEDS: Gabapentin 300 MG CAPSULE PO SCH ×4 (09:11→21:31)
[2019-10-03] MEDS: Multivit/Ca/Min/Fe/FA 1 TAB TABLET PO SCH (09:11)
[2019-10-03] MEDS: Thiamine (B-1) 100 MG TABLET PO SCH (09:12)
[2019-10-03] MEDS: polyethylene glycoL 3350 17 GM POWD.PACK PO SCH (09:12)
[2019-10-03] MEDS: Folic Acid 1 MG TABLET PO SCH (09:12)
[2019-10-03] MEDS: Acetaminophen 325 MG TABLET PO PRN (15:04)
[2019-10-03] MEDS: Melatonin 3 MG TABLET PO SCH (21:30)
[2019-10-04 01:35] LABS: Basophils # 0.1 K/mcL (0.0-0.2); Basophils % 0.7 %; Eosinophils # 0.1 K/mcL (0.0-0.6); Eosinophils % 1.3 %; Hematocrit 29.2 % (37.5-50.1); Hemoglobin 9.2 g/dL (12.9-16.9); Immature Granulocytes % 8.8 % (0-4); Lymphocytes # 2.1 K/mcL (0.6-4.6); Lymphocytes % 21.2 %; Mean Corpuscular HGB Conc 31.5 g/dL (31.6-35.5); Mean Corpuscular Hemoglobin 29.9 pg (28.0-33.3); Mean Corpuscular Volume 94.8 fL (83.0-100.0); Mean Platelet Volume 8.8 fL (9.4-12.4); Monocytes # 0.9 K/mcL (0.0-1.3); Monocytes % 8.8 %; Neutrophils # 5.8 K/mcL (1.6-8.9); Nucleated Red Blood Cells 0.7 /100 WBC (0); Platelet Count 237 K/mcL (140-400); Red Blood Count 3.08 M/mcL (4.19-5.50); Red Cell Distribution Width 16.5 % (11.5-14.5); Segmented Neutrophils % 59.2 %; White Blood Count 9.8 K/mcL (4.3-11.1)
[2019-10-04] MEDS: *HR* LORazepam 0.5 MG TABLET PO PRN (01:36)
[2019-10-04 01:55] LABS: BUN/Creatinine Ratio 11 (6-26); Blood Urea Nitrogen 8 mg/dL (6-20); Calcium 8.8 mg/dL (8.6-10.3); Carbon Dioxide 28 mEq/L (23-29); Chloride 102 mEq/L (98-107); Glucose 177 mg/dL (70-105); Osmolality,Calculated 285 (280-300); Potassium 4.6 mEq/L (3.5-5.1); Sodium 136 mEq/L (136-145); eGFR For African Americans > 60 (> 60); eGFR For Non-African Americans > 60 (> 60)
[2019-10-04 02:09] LABS: Ovalocytes 2+ (Not Present); Tear Drop Cells 2+ (Not Present)
[2019-10-04 02:10] LABS: Platelet Estimate Normal (Normal)
[2019-10-04] MEDS: Insulin LISPRO 300 UNITS/3 ML VIAL SQ SCH ×4 (08:14→20:56)
[2019-10-04] MEDS: Multivit/Ca/Min/Fe/FA 1 TAB TABLET PO SCH (09:12)
[2019-10-04] MEDS: Gabapentin 300 MG CAPSULE PO SCH ×4 (09:12→20:55)
[2019-10-04] MEDS: Thiamine (B-1) 100 MG TABLET PO SCH (09:12)
[2019-10-04] MEDS: Folic Acid 1 MG TABLET PO SCH (09:13)
[2019-10-04] MEDS: polyethylene glycoL 3350 17 GM POWD.PACK PO SCH (09:13)
[2019-10-04] MEDS: Acetaminophen 325 MG TABLET PO PRN ×3 (10:23→22:46)
[2019-10-04] MEDS: Melatonin 3 MG TABLET PO SCH (20:55)
[2019-10-05] MEDS: Acetaminophen 325 MG TABLET PO PRN (04:50)
[2019-10-05] MEDS: Magic Mouthwash 10 ML UD Cup PO PRN (04:56)
[2019-10-05] MEDS ORDERED: Ketorolac 15 MG/ML VIAL IVP ONE (06:15)
[2019-10-05 07:15] VITALS: BP 155/104
[2019-10-05] MEDS: Thiamine (B-1) 100 MG TABLET PO SCH (07:54)
[2019-10-05] MEDS: Multivit/Ca/Min/Fe/FA 1 TAB TABLET PO SCH (07:54)
[2019-10-05] MEDS: Folic Acid 1 MG TABLET PO SCH (07:55)
[2019-10-05] MEDS: Gabapentin 300 MG CAPSULE PO SCH (07:55)
[2019-10-05] MEDS: Insulin LISPRO 300 UNITS/3 ML VIAL SQ SCH (07:55)
== END 2019-10-05 13:36 | DRG 663 ==
LOC: 2ANU 17:31 → EMEROOARM 17:31 → SUATTDRO 21:49 → 2ANU 22:30 → SUATTDRO 09-29 12:43
PROVIDERS: ADMIT Student in an Organized Health Care Education/Training Program; ATTEND Internal Medicine

== ENCOUNTER 2020-06-10 20:45 | Observation (INO) ==
[2020-06-10] MEDS ORDERED: Ondansetron 4 MG/2 ML VIAL IVP ONE (21:11)
[2020-06-10] MEDS: 0.9 % Sodium Chloride 1,000 ML IVC SCH ×2 (21:42→22:36)
[2020-06-10 21:57] LABS: Basophils # 0.1 K/mcL (0.0-0.2); Basophils % 0.6 %; Eosinophils # 0.1 K/mcL (0.0-0.6); Eosinophils % 0.9 %; Hematocrit 49.4 % (37.5-50.1); Immature Granulocytes % 0.6 % (0-4); Lymphocytes % 12.8 %; Mean Corpuscular HGB Conc 34.4 g/dL (31.6-35.5); Mean Corpuscular Hemoglobin 29.3 pg (28.0-33.3); Mean Platelet Volume 10.4 fL (9.4-12.4); Monocytes # 0.7 K/mcL (0.0-1.3); Monocytes % 8.2 %; Neutrophils # 6.1 K/mcL (1.6-8.9); Platelet Count 163 K/mcL (140-400); Red Blood Count 5.81 M/mcL (4.19-5.50); Red Cell Distribution Width 12.6 % (11.5-14.5); Segmented Neutrophils % 76.9 %
[2020-06-10 22:00] LABS: VBG HCO3 28 mEq/L (21-27); VBG PCO2 40 mmHg (41-51); VBG PH 7.46 pH Units (7.32-7.42); VBG PO2 99 mmHg (25-50)
[2020-06-10 22:19] LABS: Alanine Aminotransferase 65 Units/L (7-52); Albumin 4.2 g/dL (3.5-5.7); Albumin/Globulin Ratio 1.2 (1.1-2.2); Alkaline Phosphatase 124 Units/L (34-104); Aspartate Amino Transferase 91 Units/L (13-39); BUN/Creatinine Ratio 9 (6-26); Bilirubin,Total 2.3 mg/dL (0.3-1.0); Blood Urea Nitrogen 8 mg/dL (6-20); Calcium 8.9 mg/dL (8.6-10.3); Carbon Dioxide 26 mEq/L (23-29); Chloride 83 mEq/L (98-107); Globulin 3.4 g/dL (2.4-3.5); Glucose 446 mg/dL (70-105); Magnesium 1.7 mg/dL (1.6-2.6); Osmolality,Calculated 290 (280-300); Sodium 131 mEq/L (136-145); Total Protein 7.6 g/dL (6.4-8.9); Troponin I < 0.03 ng/mL (< 0.04); eGFR For African Americans > 60 (> 60); eGFR For Non-African Americans > 60 (> 60)
[2020-06-10] MEDS ORDERED: Isovue-370 500 ML BOTTLE IVP ONE (22:21)
[2020-06-10 23:14] LABS: Bacteria,Urine Few per hpf (None-Few); Bilirubin,Urine Negative (Negative); Blood,Urine Negative (Negative); Clarity,Urine Clear (Clear); Color,Urine Light-Yellow (Yellow); Glucose,Urine (UA) >=1000 mg/dL (Normal); Ketones,Urine 20 mg/dL (Negative); Leukocyte Esterase,Urine Negative (Negative); Nitrite,Urine Negative (Negative); PH,Urine 6.5 pH Units (5.0-8.0); Protein,Urine Trace mg/dL (Neg-Trace); RBC,Urine 0-3 per hpf (0-3); Specific Gravity,Urine > 1.030 (1.010-1.025); Urobilinogen,Urine Normal (Normal); WBC,Urine 0-3 per hpf (0-3)
[2020-06-10 23:20] LABS: Adenovirus Not Detected (Not Detect); Bordetella Pertussis Not Detected (Not Detect); Chlamydophila pneumoniae Not Detected (Not Detect); Coronavirus 229E Not Detected (Not Detect); Coronavirus HKU1 Not Detected (Not Detect); Coronavirus NL63 Not Detected (Not Detect); Coronavirus OC43 Not Detected (Not Detect); Human Metapneumovirus Not Detected (Not Detect); Human Rhinovirus/Enterovirus Not Detected (Not Detect); Influenza A Subtype 2009 H1 Not Detected (Not Detect); Influenza B Not Detected (Not Detect); Mycoplasma pneumoniae Not Detected (Not Detect); Parainfluenza Virus 1 Not Detected (Not Detect); Parainfluenza Virus 2 Not Detected (Not Detect); Parainfluenza Virus 3 Not Detected (Not Detect); Parainfluenza Virus 4 Not Detected (Not Detect); Respiratory Syncytial Virus Not Detected (Not Detect); SARS-CoV-2 Not Detected (Not Detect)
[2020-06-10] MEDS ORDERED: Potassium Chloride 40 MEQ, Lidocaine 1% 2 ML in 0.9 % Sodium Chloride 500 ML IVPB ONE (23:34)
[2020-06-10] MEDS ORDERED: Ringers Solution, Lactated 1,000 ML IVC ONE (23:35)
[2020-06-10] MEDS ORDERED: Insulin Human Regular 100 UNIT in 0.9 % Sodium Chloride 100 ML IVC SCH (23:45)
[2020-06-11] MEDS ORDERED: *HR* Metoprolol 5 MG/5 ML VIAL IVP ONE (00:36)
[2020-06-11] MEDS ORDERED: Ondansetron 4 MG/2 ML VIAL IVP PRN (02:01)
[2020-06-11] MEDS ORDERED: Naloxone 0.4 MG/ML INJ IVP PRN (02:01)
[2020-06-11] MEDS ORDERED: Acetaminophen 325 MG TABLET PO PRN (02:01)
[2020-06-11] MEDS ORDERED: D5% in 0.45% NACL w KCl 20 MEQ/1,000 ML MLS IVC PRN (02:42)
[2020-06-11 03:05] LABS: BUN/Creatinine Ratio 8 (6-26); Blood Urea Nitrogen 6 mg/dL (6-20); Calcium 8.1 mg/dL (8.6-10.3); Carbon Dioxide 29 mEq/L (23-29); Chloride 94 mEq/L (98-107); Glucose 177 mg/dL (70-105); Osmolality,Calculated 280 (280-300); Sodium 134 mEq/L (136-145); eGFR For African Americans > 60 (> 60); eGFR For Non-African Americans > 60 (> 60)
[2020-06-11] MEDS ORDERED: 0.9 % Sodium Chloride 1,000 ML IVC ONE (04:52)
[2020-06-11] MEDS ORDERED: D5% in Water 1,000 ML IVC PRN (04:55)
[2020-06-11] MEDS ORDERED: Dextrose Gel 15 GM/37.5 ML TUBE PO PRN ×2 (04:55)
[2020-06-11] MEDS ORDERED: *HR* Dextrose 50 % in Water (Vial) 50 ML VIAL IVP PRN (04:55)
[2020-06-11] MEDS ORDERED: *HR* LORazepam 2 MG/ML VIAL IVP PRN ×3 (06:32)
[2020-06-11 07:20] LABS: Eosinophils % 0.3 %; Red Cell Distribution Width 12.6 % (11.5-14.5)
[2020-06-11 07:21] LABS: Basophils % 0.5 %; Hematocrit 41.6 % (37.5-50.1); Hemoglobin 14.1 g/dL (12.9-16.9); Immature Granulocytes % 0.3 % (0-4); Immature Platelets 5.8 % (1.1-6.1); Lymphocytes # 2.2 K/mcL (0.6-4.6); Mean Corpuscular HGB Conc 33.9 g/dL (31.6-35.5); Mean Corpuscular Hemoglobin 29.3 pg (28.0-33.3); Mean Corpuscular Volume 86.5 fL (83.0-100.0); Mean Platelet Volume 10.2 fL (9.4-12.4); Monocytes # 0.7 K/mcL (0.0-1.3); Neutrophils # 3.6 K/mcL (1.6-8.9); Nucleated Red Blood Cells 0.3 /100 WBC (0); Platelet Count 125 K/mcL (140-400); Red Blood Count 4.81 M/mcL (4.19-5.50); Segmented Neutrophils % 54.9 %; White Blood Count 6.6 K/mcL (4.3-11.1)
[2020-06-11] MEDS: cloNIDine HCL 0.1 MG TABLET PO SCH ×3 (07:28→21:33)
[2020-06-11] MEDS: Gabapentin 300 MG CAPSULE PO SCH ×4 (07:28→21:33)
[2020-06-11] MEDS: hydrOXYzine pamoate 25 MG CAPSULE PO SCH ×2 (07:28→21:33)
[2020-06-11] MEDS: Insulin LISPRO 300 UNITS/3 ML VIAL SQ SCH ×3 (07:29→16:47)
[2020-06-11] MEDS: Thiamine (B-1) 100 MG, Folic Acid 1 MG, MVI, adult with vitamin K 10 ML in 0.9 % Sodi... IVPB SCH ×2 (07:30→17:45)
[2020-06-11 07:46] LABS: BUN/Creatinine Ratio 8 (6-26); Blood Urea Nitrogen 6 mg/dL (6-20); Calcium 7.9 mg/dL (8.6-10.3); Carbon Dioxide 27 mEq/L (23-29); Chloride 97 mEq/L (98-107); Glucose 177 mg/dL (70-105); Osmolality,Calculated 282 (280-300); Sodium 135 mEq/L (136-145); eGFR For African Americans > 60 (> 60); eGFR For Non-African Americans > 60 (> 60)
[2020-06-11] MEDS: Insulin DETEMIR 100 UNIT/ML X5UNITS SQ SCH ×2 (09:20→21:35)
[2020-06-11] MEDS ORDERED: ALPRAZolam 1 MG TABLET PO ONE (16:17)
[2020-06-11] MEDS: *HR* Heparin 5,000 UNIT/ML VIAL SQ SCH (16:53)
[2020-06-11] MEDS ORDERED: QUEtiapine Fumarate 25 MG TABLET PO SCH (21:00)
[2020-06-11] MEDS ORDERED: traZODone 50 MG TABLET PO SCH (21:00)
[2020-06-11] MEDS ORDERED: Insulin LISPRO 300 UNITS/3 ML VIAL SQ SCH (21:00)
[2020-06-12 02:40] LABS: Nucleated Red Blood Cells 0.3 /100 WBC (0)
[2020-06-12 02:42] LABS: Basophils # 0.1 K/mcL (0.0-0.2); Basophils % 0.8 %; Eosinophils # 0.1 K/mcL (0.0-0.6); Eosinophils % 1.3 %; Hematocrit 43.2 % (37.5-50.1); Hemoglobin 14.3 g/dL (12.9-16.9); Immature Granulocytes % 0.7 % (0-4); Immature Platelets 5.3 % (1.1-6.1); Lymphocytes # 2.6 K/mcL (0.6-4.6); Mean Corpuscular HGB Conc 33.1 g/dL (31.6-35.5); Mean Corpuscular Hemoglobin 29.7 pg (28.0-33.3); Mean Corpuscular Volume 89.8 fL (83.0-100.0); Mean Platelet Volume 10.4 fL (9.4-12.4); Monocytes # 0.5 K/mcL (0.0-1.3); Neutrophils # 2.9 K/mcL (1.6-8.9); Platelet Count 121 K/mcL (140-400); Red Blood Count 4.81 M/mcL (4.19-5.50); Red Cell Distribution Width 12.6 % (11.5-14.5); Segmented Neutrophils % 47.2 %; White Blood Count 6.2 K/mcL (4.3-11.1)
[2020-06-12 02:55] LABS: BUN/Creatinine Ratio 10 (6-26); Blood Urea Nitrogen 8 mg/dL (6-20); Calcium 8.3 mg/dL (8.6-10.3); Carbon Dioxide 29 mEq/L (23-29); Chloride 96 mEq/L (98-107); Glucose 304 mg/dL (70-105); Magnesium 1.5 mg/dL (1.6-2.6); Osmolality,Calculated 286 (280-300); Phosphorous 2.2 mg/dL (2.7-4.5); Sodium 133 mEq/L (136-145); eGFR For African Americans > 60 (> 60); eGFR For Non-African Americans > 60 (> 60)
[2020-06-12] MEDS: *HR* Heparin 5,000 UNIT/ML VIAL SQ SCH (06:25)
[2020-06-12 07:23] LABS: BUN/Creatinine Ratio 8 (6-26); Blood Urea Nitrogen 7 mg/dL (6-20); Calcium 8.4 mg/dL (8.6-10.3); Carbon Dioxide 31 mEq/L (23-29); Chloride 98 mEq/L (98-107); Glucose 231 mg/dL (70-105); Osmolality,Calculated 287 (280-300); Potassium 2.8 mEq/L (3.5-5.1); Sodium 136 mEq/L (136-145); eGFR For African Americans > 60 (> 60); eGFR For Non-African Americans > 60 (> 60)
[2020-06-12] MEDS: hydrOXYzine pamoate 25 MG CAPSULE PO SCH (08:25)
[2020-06-12] MEDS: cloNIDine HCL 0.1 MG TABLET PO SCH ×2 (08:26→14:59)
[2020-06-12] MEDS: Gabapentin 300 MG CAPSULE PO SCH ×2 (08:26→14:59)
[2020-06-12] MEDS: Insulin DETEMIR 100 UNIT/ML X5UNITS SQ SCH (08:27)
[2020-06-12] MEDS: Insulin LISPRO 300 UNITS/3 ML VIAL SQ SCH ×2 (08:27→11:08)
[2020-06-12] MEDS ORDERED: Magnesium Sulfate 1 GM/102 ML PIGGYBACK IVPB ONE (13:21)
[2020-06-12 14:59] VITALS: BP 115/81
== END 2020-06-12 16:32 | disposition home or self-care (01) ==
LOC: 2NNU 20:45 → EMEROOARM 20:45 → SUATTDRO 06-11 00:52 → 2NNU 06-11 01:44 → 3ANU 06-11 14:36
PROVIDERS: ADMIT Family Medicine; ATTEND Internal Medicine